=== PATIENT | female | born 1945 | race Caucasian/White ===

== ENCOUNTER 2022-05-22 09:55 | Outpatient (CLI) | payer OTHER, SELFPAY | END 2022-05-22 09:56 | disposition home or self-care (01) | LOC: AMB 05-30 06:45 | PROVIDERS: Visit Provider Internal Medicine | DX: R10.9 Unspecified abdominal pain (principal); R50.9 Fever, unspecified; R00.0 Tachycardia, unspecified | CPT/HCPCS: A0425; A0427 ==

== ENCOUNTER 2022-05-22 10:26 | Inpatient (IN) | payer OTHER, SELFPAY ==
[2022-05-22] VITALS (22 sets, daily range): BP systolic 127–199; BP diastolic 46–173; PULSE 91–122; RESP 14–36; TEMP 36.2–37.4; O2SAT 88–97; BMI 24.7; BMI 23.4
--- NOTE | 2022-05-22 11:27 | ED.GENADULT ---
HPI - General Adult General Time Seen by Provider: 11:26 Date Seen: 05/22/22 Chief complaint: Abdominal Pain Stated complaint: Abdominal pain Time Seen by Provider: 05/22/22 10:58 Source: patient, RN notes reviewed and old records reviewed History of Present Illness HPI narrative: 76-year-old female presents from [facility] dementia unit with 1 day of abdominal pain and fever. Patient is unable to give any history. She cannot tell me where she is or why she is here. When asked specifically about abdominal pain she indicates that she has abdominal pain and points to her umbilicus. She has a history of a cholecystectomy and hysterectomy. Known to have diverticulosis as well. She has significant peripheral vascular disease, aortic aneurysm. Related Data Allergies Allergy/AdvReac Type Severity Reaction Status Date / Time No Known Drug Allergies Allergy Verified 05/22/22 10:40 Review of Systems Narrative: unable to obtain due to dementia [facility] Medical History Anxiety COPD (chronic obstructive pulmonary disease) Dementia Depression Diverticulosis Epilepsy Hyperlipidemia Hypertension Insomnia Lumbar spinal stenosis Obesity Osteoporosis Peripheral vascular disease Pneumonia due to COVID-19 virus Vitamin D deficiency Surgical History H/O: hysterectomy History of cholecystectomy History of colonoscopy Hx of breast biopsy Family History (Updated 05/22/22 @ 11:34 by Ruel Sales MD) Other Coronary artery disease Cystic fibrosis Diabetes Social History (Updated 05/22/22 @ 11:35 by Ruel Sales MD) Narrative: She is a resident of dementia unit at [facility]. Her code status is DNR. Formerly a smoker and quit in 2007 after 80 pack years of smoking. She does not drink alcohol. Her daughter Michelle is her sound effects person. Smoking Status: Unknown if ever smoked Do you use any of these nicotine containing products: None Second hand tobacco smoke exposure: No How often do you have a drink containing alcohol: never AUDIT-C Alcohol total score: 0 Non-prescribed substance use: denies use Exam Narrative: Exam Narrative: She is alert and appears in no distress. She minimally answers questions. She is unable to tell me where she is or why she is here. She does know her name. Eyes are normal. Pupils are equal round reactive to light. Oropharynx with very dry mucous membranes. No facial weakness. Neck is supple without mass or adenopathy. Respirations with marked diminished breath sounds in all lung [place]. Cardiovascular: S1, S2, 1/6 systolic ejection murmur. No gallop or rub. Regular rate and rhythm. Abdomen: Bowel sounds active. Abdomen is soft With mild right-sided tenderness but no focal mass. Some voluntary guarding. External genitalia normal. Extremities with intact pulses. No edema. Const: Vital Signs, click to edit/add: Vital Signs - 24 hr 05/22/22 10:40 05/22/22 12:28 05/22/22 14:02 Temperature 99.4 F Pulse Rate [Apical ] 96 107 H 101 H Respiratory Rate 18 24 24 Blood Pressure [Ri ght Forearm] 144/81 H 141/92 H Blood Pressure [Ri ght Upper Arm] 165/84 H Pulse Oximetry 97 90 94 05/22/22 14:30 05/22/22 15:00 05/22/22 15:30 Temperature 98.4 F Pulse Rate [Apical ] 101 H 105 H 105 H Respiratory Rate 29 H 20 34 H Blood Pressure [Ri ght Forearm] Blood Pressure [Ri ght Upper Arm] 163/83 H 148/91 H 165/104 H Pulse Oximetry 93 91 92 05/22/22 16:00 05/22/22 16:30 05/22/22 17:00 Temperature Pulse Rate [Apical ] 120 H 120 H 122 H Respiratory Rate 14 Blood Pressure [Ri ght Forearm] 175/148 H 177/64 H 176/124 H Blood Pressure [Ri ght Upper Arm] Pulse Oximetry 92 92 92 05/22/22 17:30 05/22/22 18:00 Temperature 97.2 F L Pulse Rate [Apical ] 116 H 114 H Respiratory Rate 33 H 36 H Blood Pressure [Ri ght Forearm] 199/173 H 172/95 H Blood Pressure [Ri ght Upper Arm] Pulse Oximetry 93 94 Documenting provider has reviewed patient's vital signs: yes Course Course Hospital Course: patient continued to report abdominal pain. Received morphine with some relief. Vitals remained stable. She received IV fluids and after diagnosis of intra-abdominal abscess, Pipracil and tazobactam. Consultations Consultation #1: I spoke with the radiologist and with Dr. Ken about the finding of the intra-abdominal abscess. Recommendation now is to transfer for interventional radiology. [facility] has no available beds. Pending availability from [facility] at this time. Vital Signs Vital signs: Initial Vital Signs Temperature 99.4 F 05/22/22 10:40 Temperature Source Temporal Artery Scan 05/22/22 10:40 Pulse Rate 96 05/22/22 10:40 Pulse Rhythm 05/22/22 10:40 Respiratory Rate 18 05/22/22 10:40 Blood Pressure 144/81 H 05/22/22 10:40 Blood Pressure Mean 102 05/22/22 10:40 Blood Pressure Position Supine 05/22/22 10:40 Pulse Oximetry 97 05/22/22 10:40 Oxygen Delivery Method 05/22/22 10:40 Vital Signs Temperature 99.4 F 05/22/22 10:40 Pulse Rate 96 05/22/22 10:40 Respiratory Rate 18 05/22/22 10:40 Blood Pressure 144/81 H 05/22/22 10:40 Pulse Oximetry 97 05/22/22 10:40 Temperature 97.2 F L 05/22/22 18:00 Pulse Rate 114 H 05/22/22 18:00 Respiratory Rate 36 H 05/22/22 18:00 Blood Pressure 172/95 H 05/22/22 18:00 Pulse Oximetry 94 05/22/22 18:00 Medical Decision Making Lab Data Labs: Lab Results 05/22/22 05/22/22 05/22/22 Range/Units 11:23 11:23 11:23 WBC 19.21 H (4.50-11.00) K/uL RBC 4.99 (4.00-5.20) m/uL Hgb 14.4 (12.0-16.0) gm/dL Hct 44.0 (33.0-51.0) % MCV 88 (80-100) fL MCH 29 (26-34) pg MCHC 33 (32-36) gm/dL RDW Coeff of Héctor 13.5 (11.5-15.5) % Plt Count 181 (140-440) K/uL Neut % (Auto) 90.6 H (42.0-72.0) % Lymph % (Auto) 2.8 L (20-44) % [place] % (Auto) 6.1 (0.0-11.0) % Eos % (Auto) 0.0 (0.0-7.0) % Baso % (Auto) 0.4 (0.0-3.0) % Neut # (Auto) 17.40 H (1.7-7.0) K/uL Lymph # (Auto) 0.50 L (0.90-2.90) K/uL [place] # (Auto) 1.20 H (0.00-0.90) K/UL Eos # (Auto) 0.00 (0.00-0.50) K/uL Baso # (Auto) 0.10 (0.00-0.30) K/uL Abs Immat Gran (auto) 0.02 (0.00-0.30) K/uL D-Dimer Quant (PE/DVT) 2.45 H (0.00-0.50) ug/ml VBG pH (7.32-7.43) VBG pCO2 (40-50) mmHG VBG pO2 (25-47) mmHG VBG HCO3 (21-28) mmol/L Sodium 134 L (135-149) mmol/L Potassium 3.8 (3.6-5.1) mmol/L Chloride 103 (96-114) mmol/L Carbon Dioxide 27 (20-32) mmol/L BUN 26 (7-30) mg/dL Creatinine 0.8 (0.5-1.5) mg/dL Estimated Creat Clear 37.85 Glucose 162 H (60-115) mg/dL Lactate (0.5-1.9) mmol/L Calcium 9.0 (8.4-10.6) mg/dL Total Bilirubin 1.1 (0.1-1.5) mg/dL Direct Bilirubin 0.5 (0.0-0.5) mg/dL AST 361 H (12-35) U/L ALT 325 H (4-35) U/L Alkaline Phosphatase 157 H (40-150) U/L Troponin I 0.08 H* (0.01-0.04) ng/mL C-Reactive Protein 22.7 H (0.5-1.0) mg/dL Total Protein 6.8 (6.0-8.3) g/dL Albumin 4.1 (3.3-5.0) g/dL Lipase 37 (23-300) U/L Urine Color (Yellow) Urine Appearance (Clear) Urine pH (5.0-8.5) Ur Specific [place] (1.000-1.030) Urine Protein (Negative) Urine Glucose (UA) (Negative) Urine Ketones (Negative) Urine Blood (Negative) Urine Nitrite (Negative) Urine Bilirubin (Negative) Urine Urobilinogen (0.2-1.0) Ur Leukocyte Esterase (Negative) Urine RBC (0-2) Urine WBC (0-5) Ur Squamous Epith Cells (None-Few) Amorphous Sediment (None) Urine Bacteria (None) Urine Mucus (None) SARS-CoV-2 (PCR) (Negative) Influenza Type A (PCR) (Negative) Influenza Type B (PCR) (Negative) 05/22/22 05/22/22 05/22/22 Range/Units 11:23 11:23 12:00 WBC (4.50-11.00) K/uL RBC (4.00-5.20) m/uL Hgb (12.0-16.0) gm/dL Hct (33.0-51.0) % MCV (80-100) fL MCH (26-34) pg MCHC (32-36) gm/dL RDW Coeff of Héctor (11.5-15.5) % Plt Count (140-440) K/uL Neut % (Auto) (42.0-72.0) % Lymph % (Auto) (20-44) % Kend[place] % (Auto) (0.0-11.0) % Eos % (Auto) (0.0-7.0) % Baso % (Auto) (0.0-3.0) % Neut # (Auto) (1.7-7.0) K/uL Lymph # (Auto) (0.90-2.90) K/uL [place] # (Auto) (0.00-0.90) K/UL Eos # (Auto) (0.00-0.50) K/uL Baso # (Auto) (0.00-0.30) K/uL Abs Immat Gran (auto) (0.00-0.30) K/uL D-Dimer Quant (PE/DVT) (0.00-0.50) ug/ml VBG pH 7.46 H (7.32-7.43) VBG pCO2 37 L (40-50) mmHG VBG pO2 33.1 (25-47) mmHG VBG HCO3 26 (21-28) mmol/L Sodium (135-149) mmol/L Potassium (3.6-5.1) mmol/L Chloride (96-114) mmol/L Carbon Dioxide (20-32) mmol/L BUN (7-30) mg/dL Creatinine (0.5-1.5) mg/dL Estimated Creat Clear Glucose (60-115) mg/dL Lactate 0.9 (0.5-1.9) mmol/L Calcium (8.4-10.6) mg/dL Total Bilirubin (0.1-1.5) mg/dL Direct Bilirubin (0.0-0.5) mg/dL AST (12-35) U/L ALT (4-35) U/L Alkaline Phosphatase (40-150) U/L Troponin I (0.01-0.04) ng/mL C-Reactive Protein (0.5-1.0) mg/dL Total Protein (6.0-8.3) g/dL Albumin (3.3-5.0) g/dL Lipase (23-300) U/L Urine Color (Yellow) Urine Appearance (Clear) Urine pH (5.0-8.5) Ur Specific [place] (1.000-1.030) Urine Protein (Negative) Urine Glucose (UA) (Negative) Urine Ketones (Negative) Urine Blood (Negative) Urine Nitrite (Negative) Urine Bilirubin (Negative) Urine Urobilinogen (0.2-1.0) Ur Leukocyte Esterase (Negative) Urine RBC (0-2) Urine WBC (0-5) Ur Squamous Epith Cells (None-Few) Amorphous Sediment (None) Urine Bacteria (None) Urine Mucus (None) SARS-CoV-2 (PCR) Negative SARS-CoV-2 (Negative) Influenza Type A (PCR) NEGATIVE (Negative) Influenza Type B (PCR) NEGATIVE (Negative) 05/22/22 05/22/22 05/22/22 Range/Units 12:32 13:37 16:30 WBC (4.50-11.00) K/uL RBC (4.00-5.20) m/uL Hgb (12.0-16.0) gm/dL Hct (33.0-51.0) % MCV (80-100) fL MCH (26-34) pg MCHC (32-36) gm/dL RDW Coeff of Héctor (11.5-15.5) % Plt Count (140-440) K/uL Neut % (Auto) (42.0-72.0) % Lymph % (Auto) (20-44) % Kend[place] % (Auto) (0.0-11.0) % Eos % (Auto) (0.0-7.0) % Baso % (Auto) (0.0-3.0) % Neut # (Auto) (1.7-7.0) K/uL Lymph # (Auto) (0.90-2.90) K/uL [place] # (Auto) (0.00-0.90) K/UL Eos # (Auto) (0.00-0.50) K/uL Baso # (Auto) (0.00-0.30) K/uL Abs Immat Gran (auto) (0.00-0.30) K/uL D-Dimer Quant (PE/DVT) (0.00-0.50) ug/ml VBG pH (7.32-7.43) VBG pCO2 (40-50) mmHG VBG pO2 (25-47) mmHG VBG HCO3 (21-28) mmol/L Sodium (135-149) mmol/L Potassium (3.6-5.1) mmol/L Chloride (96-114) mmol/L Carbon Dioxide (20-32) mmol/L BUN (7-30) mg/dL Creatinine (0.5-1.5) mg/dL Estimated Creat Clear Glucose (60-115) mg/dL Lactate 1.2 1.5 (0.5-1.9) mmol/L Calcium (8.4-10.6) mg/dL Total Bilirubin (0.1-1.5) mg/dL Direct Bilirubin (0.0-0.5) mg/dL AST (12-35) U/L ALT (4-35) U/L Alkaline Phosphatase (40-150) U/L Troponin I (0.01-0.04) ng/mL C-Reactive Protein (0.5-1.0) mg/dL Total Protein (6.0-8.3) g/dL Albumin (3.3-5.0) g/dL Lipase (23-300) U/L Urine Color [place] A (Yellow) Urine Appearance Cloudy A (Clear) Urine pH 5.5 (5.0-8.5) Ur Specific [place] >= 1.030 (1.000-1.030) Urine Protein 2+ A (Negative) Urine Glucose (UA) Negative (Negative) Urine Ketones Negative (Negative) Urine Blood Trace-intact A (Negative) Urine Nitrite Negative (Negative) Urine Bilirubin 1+ A (Negative) Urine Urobilinogen 0.2 (0.2-1.0) Ur Leukocyte Esterase Negative (Negative) Urine RBC 2-5 A (0-2) Urine WBC 0-2 (0-5) Ur Squamous Epith Cells Few (None-Few) Amorphous Sediment Few A (None) Urine Bacteria Moderate A (None) Urine Mucus Few A (None) SARS-CoV-2 (PCR) (Negative) Influenza Type A (PCR) (Negative) Influenza Type B (PCR) (Negative) 05/22/22 Range/Units 16:33 WBC (4.50-11.00) K/uL RBC (4.00-5.20) m/uL Hgb (12.0-16.0) gm/dL Hct (33.0-51.0) % MCV (80-100) fL MCH (26-34) pg MCHC (32-36) gm/dL RDW Coeff of Héctor (11.5-15.5) % Plt Count (140-440) K/uL Neut % (Auto) (42.0-72.0) % Lymph % (Auto) (20-44) % [place] % (Auto) (0.0-11.0) % Eos % (Auto) (0.0-7.0) % Baso % (Auto) (0.0-3.0) % Neut # (Auto) (1.7-7.0) K/uL Lymph # (Auto) (0.90-2.90) K/uL [place] # (Auto) (0.00-0.90) K/UL Eos # (Auto) (0.00-0.50) K/uL Baso # (Auto) (0.00-0.30) K/uL Abs Immat Gran (auto) (0.00-0.30) K/uL D-Dimer Quant (PE/DVT) (0.00-0.50) ug/ml VBG pH (7.32-7.43) VBG pCO2 (40-50) mmHG VBG pO2 (25-47) mmHG VBG HCO3 (21-28) mmol/L Sodium (135-149) mmol/L Potassium (3.6-5.1) mmol/L Chloride (96-114) mmol/L Carbon Dioxide (20-32) mmol/L BUN (7-30) mg/dL Creatinine (0.5-1.5) mg/dL Estimated Creat Clear Glucose (60-115) mg/dL Lactate (0.5-1.9) mmol/L Calcium (8.4-10.6) mg/dL Total Bilirubin (0.1-1.5) mg/dL Direct Bilirubin (0.0-0.5) mg/dL AST (12-35) U/L ALT (4-35) U/L Alkaline Phosphatase (40-150) U/L Troponin I 0.08 H* (0.01-0.04) ng/mL C-Reactive Protein (0.5-1.0) mg/dL Total Protein (6.0-8.3) g/dL Albumin (3.3-5.0) g/dL Lipase (23-300) U/L Urine Color (Yellow) Urine Appearance (Clear) Urine pH (5.0-8.5) Ur Specific [place] (1.000-1.030) Urine Protein (Negative) Urine Glucose (UA) (Negative) Urine Ketones (Negative) Urine Blood (Negative) Urine Nitrite (Negative) Urine Bilirubin (Negative) Urine Urobilinogen (0.2-1.0) Ur Leukocyte Esterase (Negative) Urine RBC (0-2) Urine WBC (0-5) Ur Squamous Epith Cells (None-Few) Amorphous Sediment (None) Urine Bacteria (None) Urine Mucus (None) SARS-CoV-2 (PCR) (Negative) Influenza Type A (PCR) (Negative) Influenza Type B (PCR) (Negative) Discharge Plan Discharge Clinical Impression: Intra-abdominal abscess Patient Disposition: Admitted As Inpatient Condition: Critical
[2022-05-22 11:36] LABS: Lactate* 0.9 mmol/L (0.5-1.9)
[2022-05-22 11:39] LABS: Basophils Percent Auto 0.4 % (0.0-3.0); Hemoglobin* 14.4 gm/dL (12.0-16.0); Immature Granulocytes Abs Auto 0.02 K/uL (0.00-0.30); Lymphocytes Percent Auto 2.8 % (20-44); Mean Corpuscular HGB Conc 33 gm/dL (32-36); Mean Corpuscular Hemoglobin 29 pg (26-34); Mean Corpuscular Volume 88 fL (80-100); Monocytes Percent Auto 6.1 % (0.0-11.0); Neutrophils Percent Auto 90.6 % (42.0-72.0); Platelet Count* 181 K/uL (140-440); RDW Coefficient of Variation % 13.5 % (11.5-15.5); Red Blood Count 4.99 m/uL (4.00-5.20); White Blood Count* 19.21 K/uL (4.50-11.00)
[2022-05-22 11:42] LABS: HCO3 VBG 26 mmol/L (21-28); PCO2 VBG 37 mmHG (40-50); PO2 VBG 33.1 mmHG (25-47); pH VBG 7.46 (7.32-7.43)
[2022-05-22 11:45] LABS: Slide Review Reflex No
[2022-05-22 11:59] LABS: Albumin* 4.1 g/dL (3.3-5.0); Chloride* 103 mmol/L (96-114); Potassium* 3.8 mmol/L (3.6-5.1); Sodium* 134 mmol/L (135-149)
[2022-05-22 12:01] LABS: Creatinine* 0.8 mg/dL (0.5-1.5); Est. Creatinine Clearance* 37.85; Estimated Glomerular Filt Rate 76.31
[2022-05-22 12:02] LABS: Alkaline Phosphatase* 157 U/L (40-150); Aspartate Amino Transferase* 361 U/L (12-35); Bilirubin Direct* 0.5 mg/dL (0.0-0.5); Bilirubin Total* 1.1 mg/dL (0.1-1.5); Blood Urea Nitrogen* 26 mg/dL (7-30); Carbon Dioxide* 27 mmol/L (20-32); Total Protein* 6.8 g/dL (6.0-8.3)
[2022-05-22 12:03] LABS: Alanine Aminotransferase* 325 U/L (4-35); Glucose* 162 mg/dL (60-115); Lipase* 37 U/L (23-300)
[2022-05-22 12:14] LABS: Troponin I* 0.08 ng/mL (0.01-0.04)
[2022-05-22 12:16] LABS: C Reactive Protein* 22.7 mg/dL (0.5-1.0)
[2022-05-22 12:26] LABS: D Dimer Quantitative* 2.45 ug/ml (0.00-0.50)
--- NOTE | 2022-05-22 12:32 | ED.NURSE ---
dr pascual was informed of trop of 0.08.
[2022-05-22 12:42] LABS: Appearance Urine Cloudy (Clear); Bilirubin Urine 1+ (Negative); Blood Urine Trace-intact (Negative); Color Urine Orange (Yellow); Glucose Urine Negative (Negative); Ketones Urine Negative (Negative); Leukocyte Esterase Urine Negative (Negative); Nitrite Urine Negative (Negative); Protein Urine 2+ (Negative); Specific Gravity Urine >= 1.030 (1.000-1.030); Urobilinogen Urine 0.2 (0.2-1.0); pH Urine 5.5 (5.0-8.5)
--- NOTE | 2022-05-22 12:42 | CRLHL7_ITS ---
For Patients: As a result of the Century Cures Act, medical imaging exams and procedure reports are released immediately into your electronic medical record. You may view this report before your referring provider. If you have questions, please contact your health care provider. INDICATION: Abdominal pain. Hypoxia. COMPARISON: A chest CT dated December 15, 2020 and an abdomen and pelvis CT dated January 06, 2021. TECHNIQUE: CT examination of the chest, abdomen and pelvis was performed following the uneventful intravenous administration of 95 cc of Isovue 370. Thin section axial images were obtained from the thoracic inlet through the pubic symphysis. Oral contrast was not administered. Sagittal and coronal reformatted imaging was performed. The chest portion of the study was performed as a pulmonary angiogram. Please note that all CT scans at this facility use dose modulation, iterative reconstruction, and/or weight-based dosing when appropriate to reduce radiation dose to as low as reasonably achievable. FINDINGS: CHEST: Heart size normal. No mediastinal hilar adenopathy or mass. Atherosclerotic vascular calcifications. No significant pericardial fluid. Based on review of the prior CT, the lungs present with a background emphysema and interstitial fibrosis. There also a few nodules which were present previously and are probably benign. There is a new nodule laterally and low within the right upper lobe in a branching form which is probably inflammatory or related to mucoid impaction. This measures 11 millimeters. There is bibasilar atelectasis and there is mild interstitial edema. A follow-up CT in 6 months is recommended primarily to follow-up the new 11 millimeter nodule no significant pleural effusion. There is no indication of pulmonary embolus on this exam ABDOMEN AND PELVIS: LIVER/BILIARY SYSTEM:Hepatic steatosis. No focal mass. Gallbladder surgically absent. Moderate intra and extrahepatic biliary ductal dilatation. This is similar to the prior study and probably related to prior cholecystectomy. Correlate with LFTs. I see no distal choledocholithiasis or periampullary mass. ADRENALS: There is a 1 centimeter right adrenal mass. This is indeterminate but unchanged since 2020 and likely benign. The left adrenal gland is normal. KIDNEYS, URETERS and BLADDER:The kidneys appear normal. No hydronephrosis or hydroureter. A Pfeiffer catheter is within the bladder SPLEEN:Normal appearance. PANCREAS: Appears normal. RETROPERITONEUM and MESENTERY: There is no mass, adenopathy or aortic aneurysm. There is an abdominal aortic aneurysm. This measures about 3.5 centimeters which is similar to January 06, 2021. GASTROINTESTINAL SYSTEM: There is a collection identified. This parallels the ascending colon and is located posterior and to the right of the colon. This measures about 3.8 x 2.2 x 7.5 centimeters measured from axial image 62 and sagittal image 76. This likely represents an abscess. The source is likely the appendix. Diverticulitis or colon cancer is possible. The remainder of the GI system appears normal. PELVIS: No mass, adenopathy or free fluid. OSSEOUS STRUCTURES and ABDOMINAL WALL: Degenerative changes without fracture or destructive process.No significant abdominal wall defect. OTHER: No free fluid or free air. I discussed this case with Dr. Ruel Sales at 2 o`clock on May 22, 2022 IMPRESSION: 1. CHEST: There is no indication of pulmonary embolus on this exam. There are findings suggesting mild interstitial edema. There is also a background of emphysema and fibrosis. A few nodules are stable. One nodule is new and a six-month follow-up CT is recommended regarding this finding. ascending colon measuring 3.8 x 2.2 x 7.5 centimeters likely representing an abscess. The sources probably appendiceal though it could be due to colonic diverticulitis or perforated malignancy. 3. Other incidental nonacute appearing findings as above. Please note that all CT scans at this facility use dose modulation, iterative reconstruction, and/or weight-based dosing when appropriate to reduce radiation dose to as low as reasonably achievable. Dictated by Chadwick Estrella MD @ 05/22/2022 2:01:45 PM (Electronically Signed)
[2022-05-22 12:47] LABS: PCR FLU A NEGATIVE (Negative); PCR FLU B NEGATIVE (Negative); SARS PCR* Negative SARS-CoV-2 (Negative)
[2022-05-22 13:05] LABS: Bacteria Urine Moderate; Squamous Epithelial Cell Urine Few (None-Few); WBC Urine 0-2 (0-5)
[2022-05-22 13:06] LABS: Amorphous Sediment Urine Few; Mucus Urine Few
[2022-05-22] MEDS: 0.9 % SODIUM CHLORIDE 500 ML 500 ML IV (13:23)
[2022-05-22] MEDS: MORPHINE 2 MG/ML inj IVP ×3 (13:26→16:13)
[2022-05-22 13:54] LABS: Lactate* 1.2 mmol/L (0.5-1.9)
[2022-05-22] MEDS: PIPERACILLIN/TAZOBACTAM 3.375 GM in 0.9 % SODIUM CHLORIDE Mini-bag 100 ML IVPB ×2 (14:20→20:50)
[2022-05-22] MEDS: LACTATED RINGERS 1000 ML 1,000 ML IV (15:27)
[2022-05-22 16:35] LABS: Lactate* 1.5 mmol/L (0.5-1.9)
[2022-05-22] MEDS: FUROSEMIDE 10 MG/ML inj 20 MG IV (16:38)
[2022-05-22 17:07] LABS: Troponin I* 0.08 ng/mL (0.01-0.04)
--- NOTE | 2022-05-22 17:53 | ED.NURSE ---
Received call from Deidre at the [facility]. They are still waiting for the general surgeon to review pt's case. [facility] docs want gen surg to review. They are still waiting for surgeon to get out of cases
--- NOTE | 2022-05-22 20:05 | P.IMHP_ITS ---
Hospitalist- H&P: HPI History of Present Illness Date Seen: 05/22/22 Chief complaint: Abdominal pain Narrative: Khadijah Quinones is a 76 year old female [facility] Medical History Anxiety COPD (chronic obstructive pulmonary disease) Dementia Depression Diverticulosis Epilepsy Hyperlipidemia Hypertension Insomnia Lumbar spinal stenosis Obesity Osteoporosis Peripheral vascular disease Pneumonia due to COVID-19 virus Vitamin D deficiency Surgical History H/O: hysterectomy History of cholecystectomy History of colonoscopy Hx of breast biopsy Family History (Updated 05/22/22 @ 11:34 by Ruel Sales MD) Other Coronary artery disease Cystic fibrosis Diabetes Social History (Updated 05/22/22 @ 11:35 by Ruel Sales MD) Narrative: She is a resident of dementia unit at [facility]. Her code status is DNR. Formerly a smoker and quit in 2007 after 80 pack years of smoking. She does not drink alcohol. Her daughter Michelle is her mechanical engineering draftsperson. Smoking Status: Unknown if ever smoked Do you use any of these nicotine containing products: None Second hand tobacco smoke exposure: No How often do you have a drink containing alcohol: never AUDIT-C Alcohol total score: 0 Non-prescribed substance use: denies use Meds Home Medications and Allergies Allergies Allergy/AdvReac Type Severity Reaction Status Date / Time No Known Drug Allergies Allergy Verified 05/22/22 10:40 Exam Const: Vital Signs, click to edit/add: Vital Signs - 24 hr 05/22/22 10:40 05/22/22 12:28 05/22/22 14:02 Temperature 99.4 F Pulse Rate [Apical ] 96 107 H 101 H Respiratory Rate 18 24 24 Blood Pressure [Ri ght Forearm] 144/81 H 141/92 H Blood Pressure [Ri ght Upper Arm] 165/84 H Pulse Oximetry 97 90 94 05/22/22 14:30 05/22/22 15:00 05/22/22 15:30 Temperature 98.4 F Pulse Rate [Apical ] 101 H 105 H 105 H Respiratory Rate 29 H 20 34 H Blood Pressure [Ri ght Forearm] Blood Pressure [Ri ght Upper Arm] 163/83 H 148/91 H 165/104 H Pulse Oximetry 93 91 92 05/22/22 16:00 05/22/22 16:30 05/22/22 17:00 Temperature Pulse Rate [Apical ] 120 H 120 H 122 H Respiratory Rate 14 Blood Pressure [Ri ght Forearm] 175/148 H 177/64 H 176/124 H Blood Pressure [Ri ght Upper Arm] Pulse Oximetry 92 92 92 05/22/22 17:30 05/22/22 18:00 Temperature 97.2 F L Pulse Rate [Apical ] 116 H 114 H Respiratory Rate 33 H 36 H Blood Pressure [Ri ght Forearm] 199/173 H 172/95 H Blood Pressure [Ri ght Upper Arm] Pulse Oximetry 93 94 Hospitalist - H&P: Result Labs Labs: Short CBC 05/22/22 Range/Units 11:23 WBC 19.21 H (4.50-11.00) K/uL Hgb 14.4 (12.0-16.0) gm/dL Hct 44.0 (33.0-51.0) % Plt Count 181 (140-440) K/uL BMP 05/22/22 11:23 Sodium 134 L Potassium 3.8 Chloride 103 Carbon Dioxide 27 BUN 26 Creatinine 0.8 Glucose 162 H Calcium 9.0 Cardiac Enzymes 05/22/22 05/22/22 Range/Units 11:23 16:33 Troponin I 0.08 H* 0.08 H* (0.01-0.04) ng/mL Liver Function 05/22/22 Range/Units 11:23 Total Bilirubin 1.1 (0.1-1.5) mg/dL Direct Bilirubin 0.5 (0.0-0.5) mg/dL AST 361 H (12-35) U/L ALT 325 H (4-35) U/L Alkaline Phosphatase 157 H (40-150) U/L Albumin 4.1 (3.3-5.0) g/dL Urine 05/22/22 Range/Units 12:32 Urine Color [place] A (Yellow) Urine Appearance Cloudy A (Clear) Urine pH 5.5 (5.0-8.5) Ur Specific [place] >= 1.030 (1.000-1.030) Urine Protein 2+ A (Negative) Urine Glucose (UA) Negative (Negative) Imaging CT scan - abdomen: Radiologist's impression: 1. CHEST: There is no indication of pulmonary embolus on this exam. There are findings suggesting mild interstitial edema. There is also a background of emphysema and fibrosis. A few nodules are stable. One nodule is new and a six-month follow-up CT is recommended regarding this finding. ascending colon measuring 3.8 x 2.2 x 7.5 centimeters likely representing an abscess. The sources probably appendiceal though it could be due to colonic diverticulitis or perforated malignancy. 3. Other incidental nonacute appearing findings as above.
--- NOTE | 2022-05-22 20:05 | ED.NURSE ---
admin request sent, [facility] called
--- NOTE | 2022-05-22 20:18 | PM.IMHP1 ---
Hospitalist- H&P: HPI History of Present Illness Time Seen by Provider: 09:30 Date Seen: 05/22/22 Chief complaint: Abdominal pain Narrative: Khadijah Quinones is a 76 year old female presenting with abdominal pain. Hx limited secondary to dementia. She presented to ED from [place] for worsening abdominal pain. In the ED CT CAP showed There is no indication of pulmonary embolus on this exam. There are findings suggesting mild interstitial edema. There is also a background of emphysema and fibrosis. A few nodules are stable. One nodule is new yady six-month follow-up CT is recommended regarding this finding. ascending colon measuring 3.8 x 2.2 x 7.5 centimeters likely representing an abscess. The sources probably appendiceal though it could be due to colonic diverticulitis or perforated malignancy. In the ED she was started on zosyn. Her case was discussed with General Surgery who recommended Review of Systems Status of ROS: Reports: unobtainable due to medical condition PFSH PFSH Medical History Anxiety COPD (chronic obstructive pulmonary disease) Dementia Depression Diverticulosis Epilepsy Hyperlipidemia Hypertension Insomnia Lumbar spinal stenosis Obesity Osteoporosis Peripheral vascular disease Pneumonia due to COVID-19 virus Vitamin D deficiency Surgical History H/O: hysterectomy History of cholecystectomy History of colonoscopy Hx of breast biopsy Family History (Updated 05/22/22 @ 11:34 by Ruel Sales MD) Other Coronary artery disease Cystic fibrosis Diabetes Social History (Updated 05/22/22 @ 11:35 by Ruel Sales MD) Narrative: She is a resident of dementia unit at [facility]. Her code status is DNR. Formerly a smoker and quit in 2007 after 80 pack years of smoking. She does not drink alcohol. Her daughter Michelle is her contact lens molder. Smoking Status: Unknown if ever smoked Do you use any of these nicotine containing products: None Second hand tobacco smoke exposure: No How often do you have a drink containing alcohol: never AUDIT-C Alcohol total score: 0 Non-prescribed substance use: denies use Meds Home Medications and Allergies Allergies Allergy/AdvReac Type Severity Reaction Status Date / Time No Known Drug Allergies Allergy Verified 05/22/22 10:40 Exam Narrative: Exam Narrative: Gen: no acute distress HEENT: NCAT EOMI MMM CV: RRR normal s1 s2 Lungs: CTAB Abd: soft, nt, nd MSK: age appropriate muscle mass Skin: warm, dry no rash Neuro: Alert to self; appears at baseline state Const: Vital Signs, click to edit/add: Vital Signs - 24 hr 05/22/22 10:40 05/22/22 12:28 05/22/22 14:02 Temperature 99.4 F Pulse Rate [Apical ] 96 107 H 101 H Respiratory Rate 18 24 24 Blood Pressure [Ri ght Forearm] 144/81 H 141/92 H Blood Pressure [Ri ght Upper Arm] 165/84 H Pulse Oximetry 97 90 94 05/22/22 14:30 05/22/22 15:00 05/22/22 15:30 Temperature 98.4 F Pulse Rate [Apical ] 101 H 105 H 105 H Respiratory Rate 29 H 20 34 H Blood Pressure [Ri ght Forearm] Blood Pressure [Ri ght Upper Arm] 163/83 H 148/91 H 165/104 H Pulse Oximetry 93 91 92 05/22/22 16:00 05/22/22 16:30 05/22/22 17:00 Temperature Pulse Rate [Apical ] 120 H 120 H 122 H Respiratory Rate 14 Blood Pressure [Ri ght Forearm] 175/148 H 177/64 H 176/124 H Blood Pressure [Ri ght Upper Arm] Pulse Oximetry 92 92 92 05/22/22 17:30 05/22/22 18:00 Temperature 97.2 F L Pulse Rate [Apical ] 116 H 114 H Respiratory Rate 33 H 36 H Blood Pressure [Ri ght Forearm] 199/173 H 172/95 H Blood Pressure [Ri ght Upper Arm] Pulse Oximetry 93 94 Hospitalist - H&P: Result Labs Labs: Short CBC 05/22/22 Range/Units 11:23 WBC 19.21 H (4.50-11.00) K/uL Hgb 14.4 (12.0-16.0) gm/dL Hct 44.0 (33.0-51.0) % Plt Count 181 (140-440) K/uL BMP 05/22/22 11:23 Sodium 134 L Potassium 3.8 Chloride 103 Carbon Dioxide 27 BUN 26 Creatinine 0.8 Glucose 162 H Calcium 9.0 Cardiac Enzymes 05/22/22 05/22/22 Range/Units 11:23 16:33 Troponin I 0.08 H* 0.08 H* (0.01-0.04) ng/mL Liver Function 05/22/22 Range/Units 11:23 Total Bilirubin 1.1 (0.1-1.5) mg/dL Direct Bilirubin 0.5 (0.0-0.5) mg/dL AST 361 H (12-35) U/L ALT 325 H (4-35) U/L Alkaline Phosphatase 157 H (40-150) U/L Albumin 4.1 (3.3-5.0) g/dL Urine 05/22/22 Range/Units 12:32 Urine Color [place] A (Yellow) Urine Appearance Cloudy A (Clear) Urine pH 5.5 (5.0-8.5) Ur Specific [place] >= 1.030 (1.000-1.030) Urine Protein 2+ A (Negative) Urine Glucose (UA) Negative (Negative) Imaging CT scan - abdomen: Radiologist's impression: IMPRESSION: 1. CHEST: There is no indication of pulmonary embolus on this exam. There are findings suggesting mild interstitial edema. There is also a background of emphysema and fibrosis. A few nodules are stable. One nodule is new and a six-month follow-up CT is recommended regarding this finding. ascending colon measuring 3.8 x 2.2 x 7.5 centimeters likely representing an abscess. The sources probably appendiceal though it could be due to colonic diverticulitis or perforated malignancy. 3. Other incidental nonacute appearing findings as above. Assessment and Plan Assessment and plan (1) Intra-abdominal abscess: Status: Acute Plan This is a 76F with hx of dementia presenting for evaluation of abdominal pain. Hx limited secondary to dementia. In the ED CT CAP showed There is no indication of pulmonary embolus on this exam. There are findings suggesting mild interstitial edema. There is also a background of emphysema and fibrosis. A few nodules are stable. One nodule is new yady six-month follow-up CT is recommended regarding this finding. ascending colon measuring 3.8 x 2.2 x 7.5 centimeters likely representing an abscess. The sources probably appendiceal though it could be due to colonic diverticulitis or perforated malignancy. In the ED she was started on zosyn. Her case was discussed with General Surgery who recommended IR evaluation. Her case was discussed with [facility] who have conditionally accepted her once a bed opens up. 1. Intra-abdominal abscess 2. Hx of Dementia 3. Rule out UTI 4. Hx of COPD 5. Hx of HTN 6. Hx of HLD Plan -admit to inpatient -NPO -gentle MIVF -continue zosyn -pain control -Disposition [facility] who have conditionally accepted her once a bed opens up for IR drainage Code-DNR DVT ppx-SCD pharmacy med rec pending will need review
[2022-05-22] MEDS: PANTOPRAZOLE SODIUM 40 MG INJ IV (20:48)
[2022-05-22] MEDS: HYDROmorphone 0.5 mg/0.5 ml inj IVP ×2 (20:49→23:34)
--- NOTE | 2022-05-22 21:11 | ED.NURSE ---
pt to CCU via tech. Dilaudid given for pain control. Daughter aware of pt admin to CCU. RN called and informed of new information
[2022-05-22] MEDS: SODIUM CHLORIDE 0.9 % (FLUSH) 10 ML SYRINGE IVF (23:30)
[2022-05-22] MEDS: 5 % DEXTROSE/0.9% SOD CHLORIDE 1,000 ML 75 ML IV (23:34)
[2022-05-23] MEDS: PIPERACILLIN/TAZOBACTAM 3.375 GM in 0.9 % SODIUM CHLORIDE Mini-bag 100 ML IVPB ×2 (01:46→08:02)
[2022-05-23 03:00] VITALS: BP 146/60; PULSE 92; RESP 24; TEMP 36.9; O2SAT 93
[2022-05-23] MEDS: HYDROmorphone 0.5 mg/0.5 ml inj IVP ×4 (04:33→14:47)
--- NOTE | 2022-05-23 06:19 | PC.NURSE ---
[id number]: Patient cooperative with cares. Baseline dementia. Pfeiffer patent and draining small amounts of trudi colored urine. Daughter Mihcelle at bedside during noc. Independently T&R in bed. Able to verbalize pain but not able to rate pain. PRN Dilaudid administered x2 for relief. 2-3 Lt NC to maintain O2>92% depending on patient's positioning. NPO. Anticipating transfer to [facility].
[2022-05-23 06:43] LABS: Basophils Percent Auto 0.1 % (0.0-3.0); Hematocrit 40.7 % (33.0-51.0); Hemoglobin* 13.1 gm/dL (12.0-16.0); Immature Granulocytes Abs Auto 0.05 K/uL (0.00-0.30); Lymphocytes Percent Auto 2.8 % (20-44); Mean Corpuscular HGB Conc 32 gm/dL (32-36); Mean Corpuscular Hemoglobin 29 pg (26-34); Mean Corpuscular Volume 90 fL (80-100); Monocytes Percent Auto 4.9 % (0.0-11.0); Neutrophils Percent Auto 91.9 % (42.0-72.0); Platelet Count* 162 K/uL (140-440); RDW Coefficient of Variation % 13.7 % (11.5-15.5); Red Blood Count 4.55 m/uL (4.00-5.20); White Blood Count* 17.98 K/uL (4.50-11.00)
[2022-05-23 06:49] LABS: Slide Review Reflex No
[2022-05-23 06:54] LABS: Albumin* 3.2 g/dL (3.3-5.0)
[2022-05-23 06:55] LABS: Chloride* 106 mmol/L (96-114); Potassium* 3.2 mmol/L (3.6-5.1); Sodium* 137 mmol/L (135-149)
[2022-05-23 06:57] LABS: Bilirubin Direct* 0.7 mg/dL (0.0-0.5); Bilirubin Total* 1.2 mg/dL (0.1-1.5); Carbon Dioxide* 27 mmol/L (20-32); Creatinine* 1.1 mg/dL (0.5-1.5); Est. Creatinine Clearance* 37.57; Estimated Glomerular Filt Rate 52.08; Total Protein* 5.6 g/dL (6.0-8.3)
[2022-05-23 06:58] LABS: Alanine Aminotransferase* 318 U/L (4-35); Alkaline Phosphatase* 153 U/L (40-150); Aspartate Amino Transferase* 219 U/L (12-35); Blood Urea Nitrogen* 26 mg/dL (7-30); Calcium* 7.7 mg/dL (8.4-10.6); Glucose* 203 mg/dL (60-115)
[2022-05-23 07:00] VITALS: BP 116/57; PULSE 85; PULSE 91; RESP 18; TEMP 37.3; O2SAT 85; O2SAT 91
[2022-05-23 07:27] VITALS: PULSE 82
[2022-05-23] MEDS: PANTOPRAZOLE SODIUM 40 MG INJ IVP (07:58)
[2022-05-23] MEDS: ONDANSETRON 2 MG/ML inj 4 MG IVP (08:20)
[2022-05-23 10:39] LABS: Glucose, Point-of-Care* 186 mg/dl (60-115)
--- NOTE | 2022-05-23 10:49 | REH.OT ---
OT/PT: Orders received and per rounds, patient not appropriate for therapy intervention due to medical status and possible transfer if bed available. Will check status tomorrow.
[2022-05-23 11:00] VITALS: BP 113/61; PULSE 84; RESP 18; TEMP 36.9; O2SAT 95
--- NOTE | 2022-05-23 11:08 | URNOTE ---
Vital Signs Temp Pulse Pulse Pulse Resp BP BP 05/23/22 07:27 82 05/23/22 07:00 99.1 F 91 18 116/57 L 05/23/22 03:00 98.5 F 92 24 146/60 H 05/22/22 23:09 28 H 05/22/22 23:00 98.4 F 91 92 24 127/46 L 05/22/22 22:56 98.0 F 109 H 28 H 150/50 H 05/22/22 21:52 28 H 05/22/22 21:00 101 H 20 05/22/22 20:30 113 H 16 05/22/22 20:09 104 H 05/22/22 20:00 116 H 05/22/22 19:30 105 H 18 05/22/22 19:00 98 05/22/22 18:30 103 H 26 H 05/22/22 18:00 97.2 F L 114 H 36 H 172/95 H 05/22/22 17:30 116 H 33 H 199/173 H 05/22/22 17:00 122 H 176/124 H 05/22/22 16:30 120 H 177/64 H 05/22/22 16:00 120 H 14 175/148 H 05/22/22 15:30 105 H 34 H 05/22/22 15:00 98.4 F 105 H 20 05/22/22 14:30 101 H 29 H 05/22/22 14:02 101 H 24 05/22/22 12:28 107 H 24 141/92 H BP Pulse Ox 05/23/22 07:27 05/23/22 07:00 85 L 05/23/22 03:00 93 05/22/22 23:09 92 05/22/22 23:00 91 05/22/22 22:56 92 05/22/22 21:52 92 05/22/22 21:00 140/109 H 95 05/22/22 20:30 153/62 H 88 05/22/22 20:09 05/22/22 20:00 182/95 H 92 05/22/22 19:30 169/103 H 05/22/22 19:00 188/98 H 91 05/22/22 18:30 178/90 H 91 05/22/22 18:00 94 05/22/22 17:30 93 05/22/22 17:00 92 05/22/22 16:30 92 05/22/22 16:00 92 05/22/22 15:30 165/104 H 92 05/22/22 15:00 148/91 H 91 05/22/22 14:30 163/83 H 93 05/22/22 14:02 165/84 H 94 05/22/22 12:28 90 Intake and Output 05/22/22 05/23/22 05/23/22 23:59 07:59 15:59 Intake Total 1100 / 1700 500 / 735 235 / 735 Output Total 1275 / 1275 150 / 150 Balance -175 / 425 350 / 585 235 / 585 Intake: IV 1100 / 1700 500 / 735 235 / 735 5 % Dextrose/0.9% Sod Chloride 400 / 535 135 / 535 1,000 ml @ 75 mls/hr IV . [id number] [facility] Rx#:[id number] Lactated Ringers 1000 ml 1,000 1000 / 1000 ml @ 1000 mls/hr IV .Q1H ONE Rx #:[id number] Piperacillin/Tazobactam 3.375 100 / 200 100 / 200 100 / 200 gm In 0.9 % SODIUM CHLORIDE Mini-bag 100 ml @ 200 mls/hr IVPB Q6H [facility] Rx#:[id number] Oral 0 / 0 0 / 0 Output: Urine Amount (Catheter) 1275 / 1275 150 / 150 Urethral 1275 / 1275 150 / 150 Other: # Bowel Movements 0 0 Weight 61.961 kg 61.961 kg Patient Weight 05/23/22 23:59 Weight 61.961 kg
--- NOTE | 2022-05-23 11:23 | P.IMPN_ITS ---
Progress Note: A&P Assessment and plan (1) Intra-abdominal abscess: Problem details: CT Abd/Pelvis 05/22/22: 3.8 x 2.2 x 7.5 abscess posterior to cecum and ascending colon Status: Acute Assessment and Plan: Patient warrants level of service and care beyond what we are able to provide her with. We have attempted multiple tertiary care medical facilities in the [facility] and there is currently no bed availability. We are on the waiting cue for the patient to be transferred to the [facility], [place], [place]. Meanwhile she is receiving appropriate IV antibiotics. She is on IV fluids. Is NPO. Receiving analgesics and antiemetics. Should her condition become more unstable or critical will need to continued our efforts to mobilize a bed if at all possible somewhere in the state. Reviewed with patient and daughter again today who are agreeable to proceed as planned still. (2) Dementia: Problem details: Chronic, lives in assisted living center with support Status: Acute (3) Anxiety: Status: Acute (4) Depression: Status: Acute (5) Diverticulosis: Status: Acute (6) COPD (chronic obstructive pulmonary disease): Status: Acute Assessment and Plan: Continue supportive efforts. (7) Epilepsy: Status: Acute Assessment and Plan: Continue supportive efforts. (8) Hypertension: Status: Acute (9) Hyperlipidemia: Status: Acute (10) Lumbar spinal stenosis: Status: Acute (11) Peripheral vascular disease: Status: Acute (12) Osteoporosis: Status: Acute Time Spent With Patient Total time spent: 30 minutes Subjective Time Seen by Provider: 08:00 Date Seen: 05/23/22 Interval history: Hospital day 2. 88-year-old woman with known cognitive impairment, presumably dementia not otherwise specified, presented yesterday with fever, abdominal pain, and altered mental status. In assessing her a CT scan of the abdomen and pelvis was obtained which demonstrated an intra-abdominal abscess near the ascending colon and cecum, with a differential diagnosis including ruptured appendicitis with abscess, ruptured diverticulum with abscess, ruptured cancer with abscess. While in emergency department efforts were made to transfer the patient to tertiary medical care facility across the region and state. There were no bed availabilities. Discussion was held with [place], [place], and the on-call physician agreed that patient warranted admission but again the 2 had no beds. They did place her on a cue such that when the bed became available they would call us. We still have not heard back from them. We have called them and confirmed that she is on the cue. Patient indicates she is feeling a little better today when she rests still. St ill has abdominal discomfort with movement and with palpation. Her mentation is still not normalized according to the patient's daughter who is present with us. She is NPO. She is receiving IV fluids. Continues on IV antibiotics. Pain, nausea, vomiting, under better control. She denies chest heaviness, pressure, tightness, or pain. Denies syncope or near-syncope. Denies palpitations. Yony es cough. Denies dyspnea at rest, paroxysmal nocturnal dyspnea, or orthopnea. States bowel and bladder habits are satisfactory. specifically denies diarrhea, hematochezia, melena, hematemesis, hematuria, urinary frequency, dysuria, or urgency. Weaker than usual. Reportedly usually independent. Now requires assistance with transferring and movement. Exam Narrative: Exam Narrative: Appears ill. Appears tired. Awake, alert, oriented to self, knows she is in the hospital, re-orientable to time. Cooperative. Friendly. Mood and affect are congruent. Lungs fairly clear to auscultation save some mild decreased breath sounds in both bases. No wheezing, rhonchi, or rales. Heart tones with regular rhythm, normal S1-S2. Soft systolic murmur left upper sternal border. No gallop or rub. PMI not laterally displaced. Abdomen with active bowel sounds, soft, subjective discomfort to palpation in epigastrium and right side. No rebound or guarding. Extremities without edema. Palpable pulses upper and lower extremities. Capillary refill less than 3 seconds in fingers and toes. Skin is dry, intact, thin. No obvious focal motor neurologic deficits. Const: Vital Signs, click to edit/add: Vital Signs - 24 hr 05/22/22 12:28 05/22/22 14:02 05/22/22 14:30 Temperature Pulse Rate Pulse Rate [Apical ] 107 H 101 H 101 H Pulse Rate [Left R adial] Respiratory Rate 24 24 29 H Blood Pressure [Ri ght Arm] Blood Pressure [Ri ght Forearm] 141/92 H Blood Pressure [Ri ght Upper Arm] 165/84 H 163/83 H Pulse Oximetry 90 94 93 05/22/22 15:00 05/22/22 15:30 05/22/22 16:00 Temperature 98.4 F Pulse Rate Pulse Rate [Apical ] 105 H 105 H 120 H Pulse Rate [Left R adial] Respiratory Rate 20 34 H 14 Blood Pressure [Ri ght Arm] Blood Pressure [Ri ght Forearm] 175/148 H Blood Pressure [Ri ght Upper Arm] 148/91 H 165/104 H Pulse Oximetry 91 92 92 05/22/22 16:30 05/22/22 17:00 05/22/22 17:30 Temperature Pulse Rate Pulse Rate [Apical ] 120 H 122 H 116 H Pulse Rate [Left R adial] Respiratory Rate 33 H Blood Pressure [Ri ght Arm] Blood Pressure [Ri ght Forearm] 177/64 H 176/124 H 199/173 H Blood Pressure [Ri ght Upper Arm] Pulse Oximetry 92 92 93 05/22/22 18:00 05/22/22 18:30 05/22/22 19:00 Temperature 97.2 F L Pulse Rate Pulse Rate [Apical ] 114 H 103 H 98 Pulse Rate [Left R adial] Respiratory Rate 36 H 26 H Blood Pressure [Ri ght Arm] Blood Pressure [Ri ght Forearm] 172/95 H Blood Pressure [Ri ght Upper Arm] 178/90 H 188/98 H Pulse Oximetry 94 91 91 05/22/22 19:30 05/22/22 20:00 05/22/22 20:09 Temperature Pulse Rate 104 H Pulse Rate [Apical ] 105 H 116 H Pulse Rate [Left R adial] Respiratory Rate 18 Blood Pressure [Ri ght Arm] Blood Pressure [Ri ght Forearm] Blood Pressure [Ri ght Upper Arm] 169/103 H 182/95 H Pulse Oximetry 92 05/22/22 20:30 05/22/22 21:00 05/22/22 21:52 Temperature Pulse Rate Pulse Rate [Apical ] 113 H 101 H Pulse Rate [Left R adial] Respiratory Rate 16 20 28 H Blood Pressure [Ri ght Arm] Blood Pressure [Ri ght Forearm] Blood Pressure [Ri ght Upper Arm] 153/62 H 140/109 H Pulse Oximetry 88 95 92 05/22/22 22:56 05/22/22 23:00 05/22/22 23:09 Temperature 98.0 F 98.4 F Pulse Rate 91 Pulse Rate [Apical ] Pulse Rate [Left R adial] 109 H 92 Respiratory Rate 28 H 24 28 H Blood Pressure [Ri ght Arm] 150/50 H 127/46 L Blood Pressure [Ri ght Forearm] Blood Pressure [Ri ght Upper Arm] Pulse Oximetry 92 91 92 05/23/22 03:00 05/23/22 07:00 05/23/22 07:27 Temperature 98.5 F 99.1 F Pulse Rate 82 Pulse Rate [Apical ] Pulse Rate [Left R adial] 92 91 Respiratory Rate 24 18 Blood Pressure [Ri ght Arm] 146/60 H 116/57 L Blood Pressure [Ri ght Forearm] Blood Pressure [Ri ght Upper Arm] Pulse Oximetry 93 85 L Labs Labs: Laboratory Results - last 24 hr 05/22/22 05/22/22 05/22/22 11:23 11:23 11:23 WBC 19.21 H RBC 4.99 Hgb 14.4 Hct 44.0 MCV 88 MCH 29 MCHC 33 RDW Coeff of Héctor 13.5 Plt Count 181 Neut % (Auto) 90.6 H Lymph % (Auto) 2.8 L [place] % (Auto) 6.1 Eos % (Auto) 0.0 Baso % (Auto) 0.4 Neut # (Auto) 17.40 H Lymph # (Auto) 0.50 L [place] # (Auto) 1.20 H Eos # (Auto) 0.00 Baso # (Auto) 0.10 Abs Immat Gran (auto) 0.02 D-Dimer Quant (PE/DVT) 2.45 H VBG pH VBG pCO2 VBG pO2 VBG HCO3 Sodium 134 L Potassium 3.8 Chloride 103 Carbon Dioxide 27 BUN 26 Creatinine 0.8 Estimated Creat Clear 37.85 Glucose 162 H Lactate Calcium 9.0 Total Bilirubin 1.1 Direct Bilirubin 0.5 AST 361 H ALT 325 H Alkaline Phosphatase 157 H Troponin I 0.08 H* C-Reactive Protein 22.7 H Total Protein 6.8 Albumin 4.1 Lipase 37 Urine Color Urine Appearance Urine pH Ur Specific [place] Urine Protein Urine Glucose (UA) Urine Ketones Urine Blood Urine Nitrite Urine Bilirubin Urine Urobilinogen Ur Leukocyte Esterase Urine RBC Urine WBC Ur Squamous Epith Cells Amorphous Sediment Urine Bacteria Urine Mucus SARS-CoV-2 (PCR) Influenza Type A (PCR) Influenza Type B (PCR) SARS-CoV-2 Ag (Rapid) POC Glucose 05/22/22 05/22/22 05/22/22 11:23 11:23 12:00 WBC RBC Hgb Hct MCV MCH MCHC RDW Coeff of Héctor Plt Count Neut % (Auto) Lymph % (Auto) [place] % (Auto) Eos % (Auto) Baso % (Auto) Neut # (Auto) Lymph # (Auto) [place] # (Auto) Eos # (Auto) Baso # (Auto) Abs Immat Gran (auto) D-Dimer Quant (PE/DVT) VBG pH 7.46 H VBG pCO2 37 L VBG pO2 33.1 VBG HCO3 26 Sodium Potassium Chloride Carbon Dioxide BUN Creatinine Estimated Creat Clear Glucose Lactate 0.9 Calcium Total Bilirubin Direct Bilirubin AST ALT Alkaline Phosphatase Troponin I C-Reactive Protein Total Protein Albumin Lipase Urine Color Urine Appearance Urine pH Ur Specific [place] Urine Protein Urine Glucose (UA) Urine Ketones Urine Blood Urine Nitrite Urine Bilirubin Urine Urobilinogen Ur Leukocyte Esterase Urine RBC Urine WBC Ur Squamous Epith Cells Amorphous Sediment Urine Bacteria Urine Mucus SARS-CoV-2 (PCR) Negative SARS-CoV-2 Influenza Type A (PCR) NEGATIVE Influenza Type B (PCR) NEGATIVE SARS-CoV-2 Ag (Rapid) POC Glucose 05/22/22 05/22/22 05/22/22 12:32 13:37 16:30 WBC RBC Hgb Hct MCV MCH MCHC RDW Coeff of Héctor Plt Count Neut % (Auto) Lymph % (Auto) [place] % (Auto) Eos % (Auto) Baso % (Auto) Neut # (Auto) Lymph # (Auto) [place] # (Auto) Eos # (Auto) Baso # (Auto) Abs Immat Gran (auto) D-Dimer Quant (PE/DVT) VBG pH VBG pCO2 VBG pO2 VBG HCO3 Sodium Potassium Chloride Carbon Dioxide BUN Creatinine Estimated Creat Clear Glucose Lactate 1.2 1.5 Calcium Total Bilirubin Direct Bilirubin AST ALT Alkaline Phosphatase Troponin I C-Reactive Protein Total Protein Albumin Lipase Urine Color [place] A Urine Appearance Cloudy A Urine pH 5.5 Ur Specific [place] >= 1.030 Urine Protein 2+ A Urine Glucose (UA) Negative Urine Ketones Negative Urine Blood Trace-intact A Urine Nitrite Negative Urine Bilirubin 1+ A Urine Urobilinogen 0.2 Ur Leukocyte Esterase Negative Urine RBC 2-5 A Urine WBC 0-2 Ur Squamous Epith Cells Few Amorphous Sediment Few A Urine Bacteria Moderate A Urine Mucus Few A SARS-CoV-2 (PCR) Influenza Type A (PCR) Influenza Type B (PCR) SARS-CoV-2 Ag (Rapid) POC Glucose 05/22/22 05/22/22 05/23/22 16:33 20:29 06:32 WBC 17.98 H RBC 4.55 Hgb 13.1 Hct 40.7 MCV 90 MCH 29 MCHC 32 RDW Coeff of Héctor 13.7 Plt Count 162 Neut % (Auto) 91.9 H Lymph % (Auto) 2.8 L [place] % (Auto) 4.9 Eos % (Auto) 0.0 Baso % (Auto) 0.1 Neut # (Auto) 16.50 H Lymph # (Auto) 0.50 L [place] # (Auto) 0.90 Eos # (Auto) 0.00 Baso # (Auto) 0.00 Abs Immat Gran (auto) 0.05 D-Dimer Quant (PE/DVT) VBG pH VBG pCO2 VBG pO2 VBG HCO3 Sodium Potassium Chloride Carbon Dioxide BUN Creatinine Estimated Creat Clear Glucose Lactate Calcium Total Bilirubin Direct Bilirubin AST ALT Alkaline Phosphatase Troponin I 0.08 H* C-Reactive Protein Total Protein Albumin Lipase Urine Color Urine Appearance Urine pH Ur Specific [place] Urine Protein Urine Glucose (UA) Urine Ketones Urine Blood Urine Nitrite Urine Bilirubin Urine Urobilinogen Ur Leukocyte Esterase Urine RBC Urine WBC Ur Squamous Epith Cells Amorphous Sediment Urine Bacteria Urine Mucus SARS-CoV-2 (PCR) Influenza Type A (PCR) Influenza Type B (PCR) SARS-CoV-2 Ag (Rapid) Cancelled POC Glucose 05/23/22 05/23/22 06:32 10:00 WBC RBC Hgb Hct MCV MCH MCHC RDW Coeff of Héctor Plt Count Neut % (Auto) Lymph % (Auto) [place] % (Auto) Eos % (Auto) Baso % (Auto) Neut # (Auto) Lymph # (Auto) [place] # (Auto) Eos # (Auto) Baso # (Auto) Abs Immat Gran (auto) D-Dimer Quant (PE/DVT) VBG pH VBG pCO2 VBG pO2 VBG HCO3 Sodium 137 Potassium 3.2 L Chloride 106 Carbon Dioxide 27 BUN 26 Creatinine 1.1 Estimated Creat Clear 37.57 Glucose 203 H Lactate Calcium 7.7 L Total Bilirubin 1.2 Direct Bilirubin 0.7 H AST 219 H ALT 318 H Alkaline Phosphatase 153 H Troponin I C-Reactive Protein Total Protein 5.6 L Albumin 3.2 L Lipase Urine Color Urine Appearance Urine pH Ur Specific [place] Urine Protein Urine Glucose (UA) Urine Ketones Urine Blood Urine Nitrite Urine Bilirubin Urine Urobilinogen Ur Leukocyte Esterase Urine RBC Urine WBC Ur Squamous Epith Cells Amorphous Sediment Urine Bacteria Urine Mucus SARS-CoV-2 (PCR) Influenza Type A (PCR) Influenza Type B (PCR) SARS-CoV-2 Ag (Rapid) POC Glucose 186 H
[2022-05-23] MEDS: SODIUM CHLORIDE 0.9 % (FLUSH) 10 ML SYRINGE IVF (11:38)
[2022-05-23] MEDS: POTASSIUM CHLORIDE 10 MEQ, LIDOCAINE 1 % 1 ML in 0.9 % SODIUM CHLORIDE 100 ml 100 ML 106 MEQ IVPB ×3 (12:18→14:40)
[2022-05-23 13:03] LABS: Troponin I* 0.09 ng/mL (0.01-0.04)
--- NOTE | 2022-05-23 14:24 | PC.NURSE ---
Addendum entered by Samantha Mary RN 05/23/22 15:06: Pt. transported via EMS to [place] at 1500. Dilaudid administered at 1500 for pain. Third bump of Potassium infusing at DC Original Note: Pt. is sleepy and oriented to person. Dtr in room. NPO since 05/22/22, pt. reports pain 5/10, Dilaudid given and tolerated well. Pt. has been afebrile. Patent IV in L and Rt. AC. Cath emptied @1420 w/175CC dark trudi urine. Pt. receiving 3L of oxygen and maintaining 91-93% O2. Received two bumps of Potassium 10Meq each. Awaiting transport to [facility] for interventional radiology and abscess draining.
[2022-05-23 14:37] LABS: Lactate* 0.8 mmol/L (0.5-1.9)
[2022-05-23 15:09] LABS: Potassium* 4.1 mmol/L (3.6-5.1)
[2022-05-23 16:01] LABS: Troponin I* 0.06 ng/mL (0.01-0.04)
--- NOTE | 2022-05-23 16:09 | PC.NURSE ---
Critical Troponin 0.06 called to [facility]
--- NOTE | 2022-05-25 16:56 | P.DS_ITS ---
DS: Providers Provider Date of admission: 05/22/22 20:32 Primary care physician: Not a Local Provider Admitting Clinician: Trevor Milan MD Consults: 05/22/22 23:22 Consult to Occupational Therapy [CONS] Routine Comment: Reason(s) for OT Consult:: Difficulty Managing ADLs Any Restrictions?:: Unknown Consult to Physical Therapy [CONS] Routine Comment: Reason(s) for PT Consult:: Unstable Gait Any Restrictions?:: Unknown Attending Physician on discharge: Ruel Sales MD DS: Summary Hospital Course Hospital Course: 88-year-old woman with known cognitive impairment, presumably dementia not otherwise specified, presented yesterday with fever, abdominal pain, and altered mental status.? In assessing her a CT scan of the abdomen and pelvis was obtained which demonstrated an intra-abdominal abscess near the ascending colon and cecum, with a differential diagnosis including ruptured appendicitis with abscess, ruptured diverticulum with abscess, ruptured cancer with abscess.? While in emergency department efforts were made to transfer the patient to tertiary medical care facility across the region and state.? There were no bed availabilities.? Discussion was held with [facility], [place], [place], and the on-call physician agreed that patient warranted admission but again the 2 had no beds.? They did place her on a cue such that when the bed became available they would call us.? We still have not heard back from them.? We have called them and confirmed that she is on the cue. Patient indicates she is feeling a little better today when she rests still.? Still has abdominal discomfort with movement and with palpation.? Her mentation is still not normalized according to the patient's daughter who is present with us.? She is NPO.? She is receiving IV fluids.? Continues on IV antibiotics.? Pain, nausea, vomiting, under better control.? She denies chest heaviness, pressure, tightness, or pain.? Denies syncope or near-syncope.? Denies palpitations.? Denies cough.? Denies dyspnea at rest, paroxysmal nocturnal dyspnea, or orthopnea.? States bowel and bladder habits are satisfactory. specifically denies diarrhea, hematochezia, melena, hematemesis, hematuria, urinary frequency, dysuria, or urgency.? Weaker than usual.? Reportedly usually independent.? Now requires assistance with transferring and movement. (1) Intra-abdominal abscess: ?Problem details: CT Abd/Pelvis 05/22/22: 3.8 x 2.2 x 7.5 abscess posterior to cecum and ascending colon ?Status:?Acute ?Assessment and Plan: Patient warrants level of service and care beyond what we are able to provide her with. We have attempted multiple tertiary care medical facilities in the [facility] and there is currently no bed availability. We are on the waiting cue for the patient to be transferred to the [facility], [place], [place]. Meanwhile she is receiving appropriate IV antibiotics.? She is on IV fluids.? Is NPO.? Receiving analgesics and antiemetics. Eventually we were able to find bed availability for patient at [place], [place]. Patient is transferred there via land ambulance. Patient and daughter are in total agreement with this. Time Spent with Patient Time attestation: Total time spent providing and/or coordinating discharge services: Time spent: Greater than 30 minutes Exam Narrative: Exam Narrative: Appears ill.? Appears tired.? Awake, alert, oriented to self, knows she is in the hospital, re-orientable to time.? Cooperative.? Friendly.? Mood and affect are congruent. Lungs fairly clear to auscultation save some mild decreased breath sounds in both bases.? No wheezing, rhonchi, or rales. Heart tones with regular rhythm, normal S1-S2.? Soft systolic murmur left upper sternal border.? No gallop or rub.? PMI not laterally displaced. Abdomen with active bowel sounds, soft, subjective discomfort to palpation in epigastrium and right side.? No rebound or guarding. Extremities without edema.? Palpable pulses upper and lower extremities.? Capillary refill less than 3 seconds in fingers and toes. Skin is dry, intact, thin. No obvious focal motor neurologic deficits. DS: Data Data Completed and Pending Labs on day of discharge: Preliminary micro results at discharge 05/22/22 13:32 Blood Culture - Preliminary Blood NO GROWTH AFTER 72 HOURS 05/22/22 13:37 Blood Culture - Preliminary Blood NO GROWTH AFTER 72 HOURS Discharge Plan Discharge Disposition: [facility] Date of Admission: 05/22/22 20:32 Attending Provider on Discharge: Isaiah Hester Primary Care Provider: Provider,Not a Local Condition: Critical Discharge Medications: Continued duloxetine 60 mg capsule,delayed release(DR/EC) 120 mg PO DAILY 0RF fluticasone propionate 50 mcg/actuation spray,suspension 1 spray INTRANASAL BID 0RF lisinopril 20 mg tablet 20 mg PO DAILY 0RF metoprolol succinate 25 mg tablet extended release 24 hr 25 mg PO DAILY 0RF quetiapine 25 mg tablet 25 mg PO TID PRN (Reason: agitation) 0RF Spiriva with HandiHaler 18 mcg capsule, w/inhalation device 1 cap INHALATION DAILY 0RF multivitamin [Multiple Vitamins] Tablet 1 tab PO DAILY 0RF cholecalciferol (vitamin D3) 50 mcg (2,000 unit) tablet 2,000 unit PO DAILY 0RF fluticasone propion-salmeterol [Wixela Inhub] 250-50 mcg/dose blister with dev ice 1 inh INHALATION BID 0RF aspirin 325 mg tablet,delayed release (DR/EC) 325 mg PO HS 0RF atorvastatin 10 mg tablet 10 mg PO HS 0RF cetirizine 10 mg tablet 10 mg PO HS 0RF acetaminophen 500 mg tablet 1,000 mg PO TID PRN (Reason: pain) 0RF albuterol sulfate 90 mcg/actuation HFA aerosol inhaler 2 puff INHALATION Q4H PRN (Reason: shortness of breath or wheezing) 0RF mirtazapine 45 mg tablet 45 mg PO HS 0RF Discharge Orders: Discharge Order (Routine); Ordered 05/25/22 Ordered By: Isaiah Hester Follow Up Appointments: [facility] [Outside] (Patient transferred to [facility]. ) Provider,Not a Local [Primary Care Provider] - Hospital Course: 88-year-old woman with known cognitive impairment, presumably dementia not otherwise specified, presented yesterday with fever, abdominal pain, and altered mental status.? In assessing her a CT scan of the abdomen and pelvis was obtained which demonstrated an intra-abdominal abscess near the ascending colon and cecum, with a differential diagnosis including ruptured appendicitis with abscess, ruptured diverticulum with abscess, ruptured cancer with abscess.? While in emergency department efforts were made to transfer the patient to tertiary medical care facility across the region and state.? There were no bed availabilities.? Discussion was held with [facility], [facility], [place], [place], and the on-call physician agreed that patient warranted admission but again the 2 had no beds.? They did place her on a cue such that when the bed became available they would call us.? We still have not heard back from them.? We have called them and confirmed that she is on the cue. Patient indicates she is feeling a little better today when she rests still.? Still has abdominal discomfort with movement and with palpation.? Her mentation is still not normalized according to the patient's daughter who is present with us.? She is NPO.? She is receiving IV fluids.? Continues on IV antibiotics.? Pain, nausea, vomiting, under better control.? She denies chest heaviness, pressure, tightness, or pain.? Denies syncope or near-syncope.? Denies palpitations.? Denies cough.? Denies dyspnea at rest, paroxysmal nocturnal dyspnea, or orthopnea.? States bowel and bladder habits are satisfactory. specifically denies diarrhea, hematochezia, melena, hematemesis, hematuria, urinary frequency, dysuria, or urgency.? Weaker than usual.? Reportedly usually independent.? Now requires assistance with transferring and movement. (1) Intra-abdominal abscess: ?Problem details: CT Abd/Pelvis 05/22/22: 3.8 x 2.2 x 7.5 abscess posterior to cecum and ascending colon ?Status:?Acute ?Assessment and Plan: Patient warrants level of service and care beyond what we are able to provide her with. We have attempted multiple tertiary care medical facilities in the state of [place] and there is currently no bed availability. We are on the waiting cue for the patient to be transferred to the [facility], [place], [place]. Meanwhile she is receiving appropriate IV antibiotics.? She is on IV fluids.? Is NPO.? Receiving analgesics and antiemetics. Eventually we were able to find bed availability for patient at [place], [place]. Patient is transferred there via land ambulance. Patient and daughter are in total agreement with this.
== END 2022-05-23 15:00 | disposition short-term general hospital (02) | DRG 372 ==
LOC: ED 20:08 → MEDSURG 20:32
PROVIDERS: Internal Medicine; Admitting Provider Hospitalist; Emergency Provider Family Medicine; Visit Provider Family Medicine
DX: K65.1 Peritoneal abscess (principal); E84.9 Cystic fibrosis, unspecified; I25.10 Atherosclerotic heart disease of native coronary artery without angina pectoris; E11.9 Type 2 diabetes mellitus without complications; J44.9 Chronic obstructive pulmonary disease, unspecified; F03.90 Unspecified dementia, unspecified severity, without behavioral disturbance, psychotic disturbance, mood disturbance, and anxiety; F41.9 Anxiety disorder, unspecified; F32.A Depression, unspecified; G40.909 Epilepsy, unspecified, not intractable, without status epilepticus; I10 Essential (primary) hypertension; E78.5 Hyperlipidemia, unspecified; E66.9 Obesity, unspecified; I73.9 Peripheral vascular disease, unspecified; M48.061 Spinal stenosis, lumbar region without neurogenic claudication; Z87.891 Personal history of nicotine dependence; K57.90 Diverticulosis of intestine, part unspecified, without perforation or abscess without bleeding; M81.0 Age-related osteoporosis without current pathological fracture
CPT/HCPCS: 36415; 71260; 74177; 80048; 80076; 81003; 81015; 82803; 82947; 83605; 83690; 84132; 84484; 85025; 85379; 86140; 87040; 87086; 87426; 87502; 87635; 93005; 94761; 99284; 99285; G0378; C9113; J1170; J1940; J2270; J2405; J2543; J3480; J7042; J7120; Q9967

== ENCOUNTER 2022-05-23 14:48 | Outpatient (CLI) | payer OTHER, SELFPAY | END 2022-05-23 14:49 | disposition home or self-care (01) | LOC: AMB 05-31 17:53 | PROVIDERS: Visit Provider Emergency Medicine | DX: K65.1 Peritoneal abscess (principal); R50.9 Fever, unspecified; R41.82 Altered mental status, unspecified; R10.9 Unspecified abdominal pain | CPT/HCPCS: A0425; A0427 ==

== ENCOUNTER 2022-06-14 10:44 | Inpatient (IN) | payer OTHER, SELFPAY ==
[2022-06-14 10:00] VITALS: TEMP 36.2; O2SAT 98
[2022-06-14 12:30] VITALS: BP 146/71; PULSE 94; RESP 16; TEMP 37.2; O2SAT 93
--- NOTE | 2022-06-14 13:25 | PC.NURSE ---
Addendum entered by Nan Noble RN 06/14/22 16:18: Error made: Resident does not have DX of sepsis at this time. Original Note: Admit-Admitted from [facility] in [place], arrived via Transport in W/C @ 1230, Here for rehab with a DX of acute appendix,Sepsis, localized peritonitis has a HX of COPD,HTN, transferred into recliner with assist of 1 , was given lunch Yes I am hungry, I will eat anything Orientation was given to [facility] at this time was confused to day of the week when told it was Sunday stated Nobody told me where I am I must of left the hospital yesterday and just got here today, Does anybody know I am here orientated to place,date. VSS.
--- NOTE | 2022-06-14 13:30 | PC.NURSE ---
Resident was admiited from [facility] today with DX of intra-abdominal abscess, diverticulosis, dementia, anxiety, depression, COPD, epilepsy, PVD, lumbar spinal stenosis, hypertension, hyperlipidemia, osteoporosis. Qualifying hospital stay was 05/23/22-06/14/22. Today will be her first day of coverage. Her coverage will be [employer]. Resident and daughter updated of coverage due to intermediate and therapy needs following surgery. Resident will receive pain medication and monitoring, PT/OT 5x wk, s/s infection at surgery site until resident meets goals.
--- NOTE | 2022-06-14 15:13 | PC.NURSE ---
Verbal order with read back: Discharged medications reviewed and continue as ordered by discharging provider at [place] per Hilaria Alcantara NP.
[2022-06-14 16:03] LABS: SARS PCR* Negative SARS-CoV-2 (Negative)
[2022-06-14] MEDS: METOPROLOL TARTRATE 25 MG TABLET 50 MG PO (20:31)
[2022-06-14] MEDS: FLUTICASONE/SALMETEROL 250/50 INH (20:31)
[2022-06-14] MEDS: APIXABAN 5 MG TABLET PO (20:31)
[2022-06-14] MEDS: FLUTICASONE PROPIONATE NASAL 1 SPRAY NOSTRIL-B (20:31)
[2022-06-14] MEDS: ATORVASTATIN 10 MG TABLET PO (20:34)
[2022-06-14] MEDS: CETIRIZINE HCL 10 MG TABLET PO (20:35)
[2022-06-14] MEDS: MIRTAZAPINE 15 MG TABLET 45 MG PO (20:35)
--- NOTE | 2022-06-14 21:49 | PC.NURSE ---
Admit F/U: Resident's COVID swab completed and brought to lab. Resident's VS taken @ 1515 T 97.9, P 88, RR 17, B/P 137/80 O2 92% on 2L. No complaints of pain or discomfort at this time. Daughter Michelle here visiting.
--- NOTE | 2022-06-14 21:53 | PC.NURSE ---
Admit F/U: Resident had poor appetite this evening for dinner. Stated she was not very hungry. Offered snacks and ensure but was declined. Had large loose BM this evening. VS taken @ 1715 T 97, P 84, RR 16, B/P 138/82, O2 92% on 2L via n/c. Resident denies any pain or discomfort.
--- NOTE | 2022-06-14 21:57 | PC.NURSE ---
Admit F/U: Resident's skin assessment completed. Bruise on right forearm. Surgical incision site on ABD appears healed and is scabbed over. No s/s of infection near surgical site. Wears ABD binder. No other issues at this time. VS taken @ 2114 T 97.4, P 96, RR 17, B/P 147/82, O2 90% on 2L via n/c. In bed watching TV at this time.
--- NOTE | 2022-06-15 01:04 | PC.NURSE ---
Admit status for 0030---Res. was lying in bed. O2 on at 2l/nc. VS 158/86 97.2-92-20. O2 sat 90%. Wanted to get up and walk to the BR. Once she sat up she said she couldn't do it. Would try going in the w/c. Got her the w/c. Then stated she couldn't do it. Got her a bedside commode but she wouldn't try that either. Complained of being too SOB. Assisted back into bed. Better once back in bed with HOB elevated.
[2022-06-15] MEDS: ALBUTEROL INHALER 2 PUFF IH ×2 (04:45→19:01)
--- NOTE | 2022-06-15 06:29 | PC.NURSE ---
Admit status for 0430---Awake and wanting to go to the BR. VS 174/86 98-96-20. O2 sat 93% on 2l/nc. Sat up on the edge of the bed. Complained of having trouble breathing. Sat for a minute to catch her breath. Would not get up to the BR then. Was able to transfer to and use the bedside commode. Voided good amt dark trudi urine. Back to bed. Again c/o not being able to breathe. Respirations 24/min. Did use Albuterol Inhaler at 0445 with relief. O2 was increased to 3L for toileting.
[2022-06-15] MEDS: APIXABAN 5 MG TABLET PO ×2 (08:07→16:25)
[2022-06-15] MEDS: METOPROLOL TARTRATE 25 MG TABLET 50 MG PO ×2 (08:08→16:25)
[2022-06-15] MEDS: lisinopriL 20 MG TABLET PO (08:08)
[2022-06-15] MEDS: FLUTICASONE PROPIONATE NASAL 1 SPRAY NOSTRIL-B ×2 (08:08→16:25)
[2022-06-15] MEDS: MULTIVITAMIN/MINERALS 1 TABLET 1 TAB PO (08:09)
[2022-06-15] MEDS: FLUTICASONE/SALMETEROL 250/50 INH ×2 (08:10→16:25)
[2022-06-15] MEDS: SPIRIVA HANDIHALER INH (08:11)
[2022-06-15] MEDS: polyethylene glycoL 3350 17 GM PACK PO (08:12)
[2022-06-15] MEDS: SENNOSIDES 1 TAB TABLET PO (08:13)
[2022-06-15] MEDS: QUETIAPINE 25 MG TABLET 12.5 MG PO (08:13)
--- NOTE | 2022-06-15 09:52 | PC.NURSE ---
Addendum entered by Moira Centeno LPN 06/15/22 09:55: B/P 175/78, P95, R22, T97.8 O2 96% Original Note: F/U: admit: Vitals taken and charted. Resident is refusing to get out of bed and therapy. Is confused, stating she does not know where she is, why she is here
[2022-06-15 11:37] VITALS: TEMP 36.6; O2SAT 91
--- NOTE | 2022-06-15 12:37 | PC.NURSE ---
Status/Order: Resident seen by SUPERVISOR BILLPOSTINGMaricruz. Order: Lorazepam 0.5mg PO daily @ 0800.
[2022-06-15] MEDS: ATORVASTATIN 10 MG TABLET PO (19:01)
[2022-06-15] MEDS: MIRTAZAPINE 15 MG TABLET 45 MG PO (19:01)
[2022-06-15] MEDS: CETIRIZINE HCL 10 MG TABLET PO (19:01)
[2022-06-15 21:54] VITALS: PULSE 84
--- NOTE | 2022-06-15 22:21 | PC.NURSE ---
Status: Resident has +2 pitting edema on left foot. Intervention in place to elevate legs while in recliner and in bed. Resident denies any pain or discomfort. Noted in CODING CLERK book.
[2022-06-16] MEDS: APIXABAN 5 MG TABLET PO ×2 (08:35→16:05)
[2022-06-16] MEDS: lisinopriL 20 MG TABLET PO (08:35)
[2022-06-16] MEDS: FLUTICASONE PROPIONATE NASAL 1 SPRAY NOSTRIL-B ×2 (08:35→16:05)
[2022-06-16] MEDS: MULTIVITAMIN/MINERALS 1 TABLET 1 TAB PO (08:36)
[2022-06-16] MEDS: METOPROLOL TARTRATE 25 MG TABLET 50 MG PO ×2 (08:36→16:05)
[2022-06-16] MEDS: SPIRIVA HANDIHALER INH (08:38)
[2022-06-16] MEDS: FLUTICASONE/SALMETEROL 250/50 INH ×2 (08:38→16:05)
[2022-06-16] MEDS: polyethylene glycoL 3350 17 GM PACK PO (08:38)
[2022-06-16] MEDS: SENNOSIDES 1 TAB TABLET PO (08:38)
[2022-06-16] MEDS: QUETIAPINE 25 MG TABLET 12.5 MG PO (08:39)
[2022-06-16 10:28] VITALS: TEMP 36.1; O2SAT 93
--- NOTE | 2022-06-16 13:43 | PC.NURSE ---
Status: Resident stayed in bed most of the time. Needs a lot of encouragement to get up/move. 02 sat 92-93% with 02 2L/NC. Has PT, OT.
[2022-06-16] MEDS: ATORVASTATIN 10 MG TABLET PO (19:36)
[2022-06-16] MEDS: MIRTAZAPINE 15 MG TABLET 45 MG PO (19:36)
[2022-06-16] MEDS: CETIRIZINE HCL 10 MG TABLET PO (19:36)
[2022-06-16 20:00] VITALS: PULSE 72
[2022-06-17] MEDS: FLUTICASONE PROPIONATE NASAL 1 SPRAY NOSTRIL-B ×2 (09:00→16:45)
[2022-06-17] MEDS: FUROSEMIDE 40 MG TABLET 20 MG PO (09:00)
[2022-06-17] MEDS: APIXABAN 5 MG TABLET PO ×2 (09:00→16:45)
[2022-06-17] MEDS: lisinopriL 20 MG TABLET PO (09:00)
[2022-06-17] MEDS: MULTIVITAMIN/MINERALS 1 TABLET 1 TAB PO (09:01)
[2022-06-17] MEDS: METOPROLOL TARTRATE 25 MG TABLET 50 MG PO ×2 (09:01→16:45)
[2022-06-17] MEDS: FLUTICASONE/SALMETEROL 250/50 INH ×2 (09:03→17:01)
[2022-06-17] MEDS: SPIRIVA HANDIHALER INH (09:04)
[2022-06-17] MEDS: SENNOSIDES 1 TAB TABLET PO (09:04)
[2022-06-17] MEDS: polyethylene glycoL 3350 17 GM PACK PO (09:04)
[2022-06-17] MEDS: QUETIAPINE 25 MG TABLET 12.5 MG PO (09:05)
[2022-06-17 10:00] VITALS: TEMP 36.8; O2SAT 96
--- NOTE | 2022-06-17 13:42 | PC.NURSE ---
Medication-Himanshu senior solutions architect was called again to send a RX for resident's Lorazepam, medical underwriter was told by Himanshu RX was sent on 06/15 to [facility], medical underwriter asked for a RX to be sent again to [facility].
--- NOTE | 2022-06-17 13:58 | PC.NURSE ---
Medicare-Refused to get out of bed @ 0800 to eat breakfast and have ADL's done I only want juice that's it did get dressed @ 1000, slept all AM, woken @ 1200 for lunch placed in W/C refused to eat I just can't I am not hungry was offered many choice's declined all. Is becoming restless at times, moving in bed back and forth.
[2022-06-17] MEDS: QUETIAPINE 25 MG TABLET PO (14:18)
--- NOTE | 2022-06-17 14:32 | PC.NURSE ---
Behavior-Baggage Inspector entered resident's room, resident was sitting in her W/C in bathroom with the lights out, asked if needed help I have to go the bathroom was assisted onto toilet voided small amt brought back out by bed, snacks were offered and refused, noted anxiety level was increasing, PRN Seroquel was given at this time for restlessness.
[2022-06-17] MEDS: OXYCODONE 5 MG TABLET 2.5 MG PO (16:46)
[2022-06-17] MEDS: ATORVASTATIN 10 MG TABLET PO (19:21)
[2022-06-17] MEDS: CETIRIZINE HCL 10 MG TABLET PO (19:21)
[2022-06-17] MEDS: MIRTAZAPINE 15 MG TABLET 45 MG PO (19:21)
[2022-06-17 21:07] VITALS: PULSE 80
[2022-06-17 21:18] VITALS: BP 120/75
--- NOTE | 2022-06-17 21:47 | PC.NURSE ---
Status: Resident was anxious for a few hours on the PM shift was given snacks and a warm towel. When that didn't help resident stated that she was having pain of 8 in her stomach. Was given an Oxycodone 2.5mg at 1646. Was calm/pain free the rest of the shift.
[2022-06-18] MEDS: OXYCODONE 5 MG TABLET 2.5 MG PO ×3 (01:27→12:42)
--- NOTE | 2022-06-18 04:28 | PC.NURSE ---
Resident receives Seroquel for anxiety, negative statements, short temper, and shortness of breath. No side effects noted from the mediation.
[2022-06-18] MEDS: FLUTICASONE PROPIONATE NASAL 1 SPRAY NOSTRIL-B ×2 (08:12→15:10)
[2022-06-18] MEDS: APIXABAN 5 MG TABLET PO ×2 (08:12→15:10)
[2022-06-18] MEDS: FUROSEMIDE 40 MG TABLET 20 MG PO (08:13)
[2022-06-18] MEDS: lisinopriL 20 MG TABLET PO (08:13)
[2022-06-18] MEDS: METOPROLOL TARTRATE 25 MG TABLET 50 MG PO ×2 (08:13→15:10)
[2022-06-18] MEDS: MULTIVITAMIN/MINERALS 1 TABLET 1 TAB PO (08:13)
[2022-06-18] MEDS: FLUTICASONE/SALMETEROL 250/50 INH ×2 (08:14→15:10)
[2022-06-18] MEDS: SPIRIVA HANDIHALER INH (08:15)
[2022-06-18] MEDS: SENNOSIDES 1 TAB TABLET PO (08:16)
[2022-06-18] MEDS: polyethylene glycoL 3350 17 GM PACK PO (08:16)
[2022-06-18] MEDS: QUETIAPINE 25 MG TABLET 12.5 MG PO (08:17)
[2022-06-18] MEDS: LORazepam 0.5 MG TABLET PO (08:19)
[2022-06-18 09:58] VITALS: TEMP 36.3; O2SAT 95
--- NOTE | 2022-06-18 10:00 | PC.NURSE ---
Status-Guide Excursion entered room with TERI, agreed to get up to use bathroom, 2 person assist from bed to W/C I can't stand anymore you do it had eye's closed job specification writer asked resident to open eye's I can't it hurt's 2 person transfer onto toilet resident would not assist by placing hands on rails I just can't I can't see refused to open eye's was sitting on toilet I asked to put on the toilet explained was sitting there, after void transferred back to W/C did open eye's I hurt again asked where the pain was started to rub her face Right here Confused to time and place, stated was living in [place], reorientated to place and time, job specification writer was giving 0800 medications Please no I can't swallow, my eye's hurt did take 3 pill's That is enough reproached was given couple more till had taken medication's, breakfast was brought in No I can't eat when checked on was sleeping in W/C, placed into recliner Thanks now leave me alone.
--- NOTE | 2022-06-18 13:01 | PC.NURSE ---
Status-Has been sleeping in recliner most of shift, remains to C/O pain when asked it is different area's her face,arm,eye's, PRN medication given per orders, reproached x2 to assist with care's, face was washed, agreed to have t-shirt and pant's on, At this time has refused to eat lunch, different options of food were offered,refused, medical writer called Dtr Michelle to see if any foods could be offered and to give update on status, Dtr stated At times Mom is worried about getting fat, it is worse since her surgery she will eat just 1-2 bite's I will bring in some food see if she will eat it.
[2022-06-18] MEDS: CETIRIZINE HCL 10 MG TABLET PO (19:16)
[2022-06-18] MEDS: ATORVASTATIN 10 MG TABLET PO (19:16)
[2022-06-18] MEDS: MIRTAZAPINE 15 MG TABLET 45 MG PO (19:16)
[2022-06-18 21:03] VITALS: BP 124/75; PULSE 79
--- NOTE | 2022-06-18 21:19 | PC.NURSE ---
Status: Residents daughter brought dinner for resident and resident ate a bowl of cereal for dinner also, had ice cream. Resident stated that she is lactose intolerant but, daughter says that she is not. Needed two assist to get off of the toilet and, into bed.
--- NOTE | 2022-06-19 07:39 | PC.NURSE ---
Week #1: Baseline care plan reviewed. No changes made. Nothing added to temporary care plan. Resident needs one assist with dressing and bathing. Limited assist with grooming and oral cares. Staff set up & assist as needed. Is on regular diet (lactose free with dairy products per resident). Feed self after set up, usually eats in bed . Needs a lot of encouragement to get up. No problems with chewing or swallowing reported. Pain: Has abd/back pain. Is not on routine pain medications. Has an order for Tylenol 1000mg TID PRN & hasn't used since admission, Oxycodone 2.5mg Q4H PRN & has used occasionally. Is able to verbalize need for pain.
[2022-06-19] MEDS: FUROSEMIDE 40 MG TABLET 20 MG PO (08:03)
[2022-06-19] MEDS: APIXABAN 5 MG TABLET PO ×2 (08:03→16:38)
[2022-06-19] MEDS: FLUTICASONE PROPIONATE NASAL 1 SPRAY NOSTRIL-B ×2 (08:03→16:38)
[2022-06-19] MEDS: lisinopriL 20 MG TABLET PO (08:04)
[2022-06-19] MEDS: METOPROLOL TARTRATE 25 MG TABLET 50 MG PO ×2 (08:04→16:38)
[2022-06-19] MEDS: MULTIVITAMIN/MINERALS 1 TABLET 1 TAB PO (08:04)
[2022-06-19] MEDS: SPIRIVA HANDIHALER INH (08:05)
[2022-06-19] MEDS: FLUTICASONE/SALMETEROL 250/50 INH ×2 (08:05→16:38)
[2022-06-19] MEDS: QUETIAPINE 25 MG TABLET 12.5 MG PO (08:06)
[2022-06-19] MEDS: polyethylene glycoL 3350 17 GM PACK PO (08:06)
[2022-06-19] MEDS: SENNOSIDES 1 TAB TABLET PO (08:06)
[2022-06-19] MEDS: LORazepam 0.5 MG TABLET PO (08:09)
[2022-06-19 09:49] VITALS: BP 128/72; PULSE 90; RESP 18; TEMP 36.8; O2SAT 90; O2SAT 94
--- NOTE | 2022-06-19 13:32 | PC.NURSE ---
Status: Resident got up in recliner, was assist of 2 staff to get into the recliner but did stand up with assist of 1 with PT. Resident was short with staff this shift ie: Get out of here I don't want to eat Resident had no verbal or nonverbal s/s of pain.
--- NOTE | 2022-06-19 14:23 | PC.NURSE ---
Addendum entered by Nan Noble RN 06/19/22 14:25: Daughter Michelle updated and in agreement with orders. Original Note: NEW ORDERS: RBVO per Hilaria Alcantara HARBOR TUG CAPTAIN: BMP, CBC, UA/UC stat DX increased confusion. Order placed.
[2022-06-19 14:46] VITALS: BMI 25.0
[2022-06-19 16:59] LABS: Appearance Urine Clear (Clear); Bilirubin Urine Negative (Negative); Blood Urine Negative (Negative); Color Urine Yellow (Yellow); Glucose Urine Negative (Negative); Ketones Urine Negative (Negative); Leukocyte Esterase Urine Trace (Negative); Nitrite Urine Negative (Negative); Protein Urine Negative (Negative); Urobilinogen Urine 0.2 (0.2-1.0)
[2022-06-19 17:08] LABS: RBC Urine 0-2 (0-2); Squamous Epithelial Cell Urine Few (None-Few)
[2022-06-19 17:09] LABS: Bacteria Urine Few; Hyaline Casts Urine Few (None-Few)
[2022-06-19] MEDS: CETIRIZINE HCL 10 MG TABLET PO (19:12)
[2022-06-19] MEDS: MIRTAZAPINE 15 MG TABLET 45 MG PO (19:12)
[2022-06-19] MEDS: ATORVASTATIN 10 MG TABLET PO (19:12)
--- NOTE | 2022-06-19 20:42 | PC.NURSE ---
Week #1---[facility] shift charting---baseline care plan reviewed. No changes made. Nothing added to temporary care plan. Is offered assist to get a drink of water when awake for cares. Will take a few sips or refuse. Pain---has c/o pain at [facility] x 2 since admission. Relief with prn Oxycodone 2.5 mg. Is on no scheduled pain meds. Meds available if needed: Tylenol 1000 mg tid prn, Diclofenac gel tid prn, and Oxycodoner 2.5 mg q4h prn.
[2022-06-19 21:16] VITALS: BP 151/71; PULSE 80
--- NOTE | 2022-06-19 21:34 | PC.NURSE ---
Status: Resident was having behaviors during the PM shift. Not eating dinner. Refusing oxygen. Saying I can't, I just can't when asked to stand up. Saying that she thought she was going to throw up.
--- NOTE | 2022-06-19 21:38 | PC.NURSE ---
Order: Himanshu'angela Cutler updated about UA. States that until UC comes back we are to encourage fluids.
[2022-06-19 21:51] VITALS: BP 151/71; PULSE 80; RESP 20; TEMP 36.4; O2SAT 90
--- NOTE | 2022-06-20 06:53 | REH.OT ---
Hot Liquid Safety Eval Patient is limited by Cognition with dementia physical deficits with weakness Use covered mug Only drink hot liquids at the table
[2022-06-20 07:38] LABS: Basophils Absolute Auto 0.19 K/uL (0.00-0.30); Basophils Percent Auto 2.1 % (0.0-3.0); Eosinophils Absolute Auto 0.01 K/uL (0.00-0.50); Eosinophils Percent Auto 0.1 % (0.0-7.0); Hematocrit 32.2 % (33.0-51.0); Hemoglobin* 9.8 gm/dL (12.0-16.0); Immature Granulocytes Abs Auto 0.09 K/uL (0.00-0.30); Lymphocytes Percent Auto 11.1 % (20-44); Mean Corpuscular HGB Conc 30 gm/dL (32-36); Mean Corpuscular Hemoglobin 28 pg (26-34); Mean Corpuscular Volume 93 fL (80-100); Monocytes Percent Auto 8.3 % (0.0-11.0); Neutrophils Percent Auto 77.4 % (42.0-72.0); Platelet Count* 317 K/uL (140-440); RDW Coefficient of Variation % 16.2 % (11.5-15.5); Red Blood Count 3.47 m/uL (4.00-5.20); White Blood Count* 8.91 K/uL (4.50-11.00)
[2022-06-20 07:44] LABS: Slide Review Reflex No
[2022-06-20 07:55] LABS: Chloride* 101 mmol/L (96-114); Potassium* 3.9 mmol/L (3.6-5.1); Sodium* 143 mmol/L (135-149)
[2022-06-20 07:58] LABS: Blood Urea Nitrogen* 15 mg/dL (7-30); Carbon Dioxide* 34 mmol/L (20-32); Creatinine* 0.7 mg/dL (0.5-1.5); Est. Creatinine Clearance* 37.85; Estimated Glomerular Filt Rate 90 ml/min
[2022-06-20 07:59] LABS: Calcium* 8.8 mg/dL (8.4-10.6); Glucose* 128 mg/dL (60-115)
[2022-06-20] MEDS: LORazepam 0.5 MG TABLET PO (08:15)
[2022-06-20] MEDS: OXYCODONE 5 MG TABLET 2.5 MG PO (08:23)
[2022-06-20 10:00] VITALS: TEMP 37; O2SAT 94
--- NOTE | 2022-06-20 10:26 | PC.NURSE ---
Status/ED-Hilaria [employer] AND [employer]ULAT[employer] OFF[employer]ERS here was updated on recent status, resident remains to refuse to eat, took Ativan and pain medication this AM, refused all other medications I will not take them C/O of pain in middle ABD, Dtr is here spoke with Hilaria, Per [employer] AND [employer]ULATORY OFFICERS will send to ED for evaluation, at this time BP 167/84 P-101 and irregular R-22 T-98.7 breathing is becoming Labored at times, right LS diminished,SATS @ 2L 88%, Call was placed to ED with report, will bring beverley to LT for transport to ED, Dtr is agreeable to this transfer.
--- NOTE | 2022-06-20 11:35 | PC.NURSE ---
Transferred to ED via [facility] @ 1100 dtr was with.
--- NOTE | 2022-06-20 22:16 | PC.NURSE ---
Admission Status: Resident is admitted as inpatient at the Med S[facility], as at 06/20/22. Bed Hold status will be determined by tomorrow, 06/21/22, according to daughter. Resident's Fluticasone Propionate spray is sent to Med Surg, per nurseYi's request. Hilda GAGNON, notified and updated.
--- NOTE | 2022-06-21 08:10 | PC.SOCIAL ---
Resident was admitted to [facility] on 06/20/2022 and her insurance covers a bed hold.
[2022-06-22] MEDS: FLUTICASONE PROPIONATE NASAL 1 SPRAY NOSTRIL-B (16:01)
[2022-06-22] MEDS: OXYCODONE 5 MG TABLET 2.5 MG PO (16:40)
[2022-06-22] MEDS: APIXABAN 5 MG TABLET PO (16:40)
[2022-06-22] MEDS: METOPROLOL TARTRATE 25 MG TABLET 50 MG PO (16:40)
[2022-06-22 17:00] VITALS: BP 169/82; PULSE 90; RESP 22; TEMP 36.9; O2SAT 88
[2022-06-22] MEDS: ATORVASTATIN 10 MG TABLET PO (19:50)
[2022-06-22 21:00] VITALS: BP 173/80; PULSE 85; RESP 20; TEMP 36.6; O2SAT 92
[2022-06-22 21:35] VITALS: BP 169/82; PULSE 85
--- NOTE | 2022-06-22 21:50 | PC.NURSE ---
Status: Resident back- took bites of yogurt for dinner and sips of water and rian venkata. Had to be reproached when several times to get to take meds. Continued to say I can't. when asked to do anything. Skin assessed 4 band-aids taken off no bruises noted from IVs. One bruise on back of right arm [id number] big. Monitor. Transferred with 1-2 assist. Was given oxycodone 2.5mg once for generalized pain.
--- NOTE | 2022-06-22 22:15 | PC.NURSE ---
Order change: Discontinued- cetirizine, vitamin D, multivitamin, diclofenac gel, fluticasone spray, Remeron. Started on; potassium chloride 20meq. Now PRN; ativan, senna and miralax
[2022-06-23 01:00] VITALS: BP 153/79; PULSE 114; RESP 20; TEMP 36.4; O2SAT 92
--- NOTE | 2022-06-23 01:45 | PC.NURSE ---
Readmit status for 0100---Res. awake and squirming in bed. States she has to pee. Attempted to get her up to the commode. Sat up on the edge of the bed and then stated, I can't do it. Assisted to lie down. Brief was already wet. Clean brief applied. O2 increased to 3l for cares. O2 sat on her fingers was in the 70's and 80's. Checked on her right ear and was 92%.
[2022-06-23 05:00] VITALS: BP 175/81; PULSE 102; RESP 20; TEMP 36.4; O2SAT 90
--- NOTE | 2022-06-23 05:13 | PC.NURSE ---
Readmit status for 0500---Has been sleeping most of the noc. Will mumble to herself at times. Hands very dry and cold. O2 sat on fingers was in the 80's. O2 sat on her ear was 90%. Brief was dry at this time. Did not want to get up to the BR or commode. Did take a couple sips of Sprite.
[2022-06-23] MEDS: APIXABAN 5 MG TABLET PO (08:23)
[2022-06-23] MEDS: FUROSEMIDE 40 MG TABLET 20 MG PO (08:23)
[2022-06-23] MEDS: lisinopriL 20 MG TABLET PO (08:24)
[2022-06-23] MEDS: METOPROLOL TARTRATE 25 MG TABLET 50 MG PO (08:24)
[2022-06-23] MEDS: POTASSIUM CHLORIDE 10 MEQ CAPSULE ER 20 MEQ PO (08:25)
[2022-06-23] MEDS: QUETIAPINE 25 MG TABLET 12.5 MG PO (08:25)
[2022-06-23] MEDS: SPIRIVA HANDIHALER INH (08:30)
[2022-06-23 09:00] VITALS: BP 174/91; PULSE 91; RESP 22; TEMP 36.2; O2SAT 92
--- NOTE | 2022-06-23 10:32 | PC.NURSE ---
Status: Was noted that resident is mottling to bilateral L/E & U/E with skin cool to the touch but torso is warm. B/P 174/91, P91, R22, O2 92% on 3L Breathing noted to be shallow. Dr Franklin here and updated
--- NOTE | 2022-06-23 11:24 | PC.NURSE ---
Covid Swab Test: Day 1 done and sent to lab.
[2022-06-23 12:45] VITALS: TEMP 36.2; O2SAT 92
--- NOTE | 2022-06-23 12:53 | PC.NURSE ---
Admit: Resident continues to have bilateral L/E & U/E mottling. Dr Franklin updated daughter and wrote new orders. Has no verbal or nonverbal s/s of pain at this time.
--- NOTE | 2022-06-23 12:59 | PC.NURSE ---
Addendum entered by Gregoria Chou RN 06/23/22 13:39: Urine Culture: Result noted by Dr. Franklin. Original Note: Status: Order: Dr. Franklin here. Updated of change in status: mottling, unable to swallow meds & food, increase weakness. Resident seen and daughter updated by MD of change in status & orders. Orders: Discontinue Albuterol inh, Fluticasone/Alhaji spray, Apixaban, Atovarstatin, Lisinopril, Metoprolol, Quetanapine, Lasix, Potassium. Start on Roxanol 5mg (0.25ml) Q1H PRN pain, dyspnea, distress, Lorazepam 2mg/cc 0.25cc (0.5mg) Q4H PRN for anxiety, insomnia, distress, Zofran 4mg Q6H PRN .
[2022-06-23 13:39] LABS: SARS PCR* Negative SARS-CoV-2 (Negative)
--- NOTE | 2022-06-23 14:26 | PC.NURSE ---
Order: Received v.o. from Maricruz FLORES to discontinue Tylenol & Oxycodone when Morphine arrives,
[2022-06-23] MEDS: COVID-19 VACC, MRNA(PFIZER)/PF 30 MCG/0.3 ML VIAL IM (15:50)
[2022-06-23] MEDS: LORazepam 0.5 MG TABLET PO (16:43)
[2022-06-23] MEDS: MORPHINE 20 MG/ML **CONCENTRATE** ORAL 5 MG PO ×2 (19:51→21:51)
[2022-06-23 21:46] VITALS: BP 183/81; PULSE 81; RESP 24; TEMP 35.8; O2SAT 84
--- NOTE | 2022-06-23 21:54 | PC.NURSE ---
Status: Resident c/o pain and appeared to be using abdominal muscles to breathe and was very SOB. Given Roxanol at 1951. Was somewhat effective. VS taken at 21:45 and RR is 24, Pulse is 104, O2 sats at 84% on 2L via n/c. Stated she was in pain with a response of yes but could express where or scale. Facial grimacing is observed. Additional dose of Roxanol at 21:51 was given. Mottling is also observed on upper thighs. Will let oncoming nurse to complete reassessment.
[2022-06-24] MEDS: MORPHINE 20 MG/ML **CONCENTRATE** ORAL 5 MG PO ×6 (00:34→23:54)
--- NOTE | 2022-06-24 03:13 | PC.NURSE ---
Status---Has been restless off and on. Keeps removing O2 cannula. Was given Roxanol 5 mg at 0034. Within 1/2 hour was less restless and left O2 on. O2 sat was 88% on 3l/nc. Has been incont. of urine x 1. When cares done will say, no, stop it! and then immediately say I'm sorry. Continues to have mottling on upper thighs which comes and goes. Took 1 sip of water and then refused any more.
--- NOTE | 2022-06-24 06:36 | PC.NURSE ---
Status---did receive another dose of Roxanol 5 mg at 0409 for restlessness. At 0430 was calmer and cooperative with cares. Brief was changed as she had been incont. of urine. Did allow staff to position her on her side. Took a couple sips of rian venkata. O2 sat 85% on 3l/nc.
[2022-06-24 10:28] VITALS: TEMP 36; O2SAT 86
[2022-06-24] MEDS: MAGNESIUM HYDROXIDE 30 ML ORAL.SUSP PO (10:41)
--- NOTE | 2022-06-24 10:47 | PC.NURSE ---
Status: Resident has been non-responsive this shift so far. Daughter was here for visit. Has had 0 intake so far. Was given morphine sulfate x1 due to resps 22 and O2 sat 86% on 3L.
--- NOTE | 2022-06-24 13:06 | PC.NURSE ---
Status: Resident had no oral intake, very little urine output. Some mottling noted to bilateral L/E. Was given prn morphine x2 this shift which was effective in keeping resident comfortable.
[2022-06-24 21:51] VITALS: BP 111/74; PULSE 72
--- NOTE | 2022-06-24 21:57 | PC.NURSE ---
Status: Daughter here visiting this afternoon. Brought in radio for music. Resident refused dinner and snacks offered. Resident became agitated, taking off oxygen and kicking off blankets. Was given PRN Ativan at 1936 which was somewhat effective. Had a few sips of rian venkata. Roxanol PRN given at 2042 prior to changing brief from urine incontinence. Had no BM this shift.
--- NOTE | 2022-06-24 23:58 | PC.NURSE ---
Status---Res. was awake and mumbling to herself. Was able to answer questions with yes/no answers. Legs mottled up to hips. Brief was wet. Was changed and repositioned on her right side. O2 sat 86% on 3l/nc. Respirations shallow and 36/min. Given Roxanol 5 mg.
--- NOTE | 2022-06-25 02:17 | PC.NURSE ---
Addendum entered by Lj Velasquez LPN 06/25/22 02:20: Respirations had gone down to 24/min at 0030 after receiving Roxanol at 2354. Original Note: Status---Mottling in legs is decreased at this time. Res. has been sleeping and awakens readily for cares. Brief was dry now. Repositioned to left side. Did help with turning. Refused anything to drink.
[2022-06-25] MEDS: MORPHINE 20 MG/ML **CONCENTRATE** ORAL 5 MG PO ×5 (04:03→19:30)
--- NOTE | 2022-06-25 05:00 | PC.NURSE ---
Status---was becoming more restless at 0400. Roxanol 5 mg given at 0403. At 0430 cares were done. Less restless. Brief was changed as she was wet. Minimal mottling noted now. Did take a couple sips of rian venkata. O2 remains on at 3l/nc.
--- NOTE | 2022-06-25 08:23 | PC.NURSE ---
Status: Resident is unresponsive at this time, breathing noted to be very shallow at 14. Skin to torso is warm and temp 96.4. Daughter called and updated, stated she will come in
[2022-06-25] MEDS: LORazepam 0.5 MG TABLET PO (09:15)
--- NOTE | 2022-06-25 09:56 | PC.NURSE ---
Status: Resident's daughter here at bedside. Was noted that resident is cayenne stoking with 10 to 20 second apneas. Has been given morphine sulfate and ativan for restlessness and comfort x1. Mottling continues to bilateral L/E & U/E.
[2022-06-25 12:38] VITALS: TEMP 36.1; O2SAT 88
--- NOTE | 2022-06-25 12:39 | PC.NURSE ---
Addendum entered by Moira Centeno LPN 06/25/22 12:48: Resident was also a no void this shift Original Note: Status: Daughter continues to be at bedside. Resident continues to have mottling to L/E & U/E along with face. Continues to have cayenne stoking with 15-20 second apneas. Spoke with daughter about dying process and she expressed understanding.
[2022-06-25 21:15] VITALS: BP 104/61; PULSE 59
--- NOTE | 2022-06-25 21:36 | PC.NURSE ---
Status: Resident's daughter at bedside. Res. having occasional 20 second periods of apnea. Brief was wet and was changed once. Ativan and Roxanol given for restlessness. Refused to drink anything this shift. Mottling is still observed bilaterally on lower extremities.
--- NOTE | 2022-06-26 03:42 | PC.NURSE ---
Week #2: Baseline care plan problems #20-29 reviewed. ? No changes made, and nothing added at this time.? Actively dying and with comfort care status in-placed, resident is being repositioned every two hours this shift, NOC..? Falls: No fall incidents since admission, 06/14/22
[2022-06-26] MEDS: MORPHINE 20 MG/ML **CONCENTRATE** ORAL 5 MG PO ×3 (06:22→10:19)
--- NOTE | 2022-06-26 09:56 | PC.NURSE ---
Status: At beginning of shift, resident was noted to have O2 off and O2 sat of 74%, respirations noted to be 36, resident was very agitated, kicking, scratching, throwing arms and legs around. Also stated It hurts. Resident was given morphine sulfate at 6:20am and 7:39am along with Ativan at 7:30am. Resident is now starting to be calm. Mottling to bilateral L/E along with 15 to 20 second periods of apnea
[2022-06-26] MEDS: LORazepam 0.5 MG TABLET PO (10:18)
[2022-06-26 10:33] VITALS: TEMP 35.8; O2SAT 85
--- NOTE | 2022-06-26 10:44 | PC.NURSE ---
RBVO Per Hilaria Alcantara BAND MACHINE OPERATOR: Morphine 0.25-1ml po q 1 hr PRN: Pain, Dyspnea, restlessness.
[2022-06-26] MEDS: MORPHINE 10 MG/0.5 ML ORAL SOLN PO ×4 (11:48→23:30)
--- NOTE | 2022-06-26 13:08 | PC.NURSE ---
Status: Resident has been restless entire shift, taking off cloths and O2. Is starting to settle down now. Received order for increase in morphine sulfate which she was given at 11:49. O2 sat continues to be between 80 and 86%, resp at this time 28, mottling to bilateral L/E. Daughter went home for a few hours. Has been turned and repositioned q2hrs with oral cares given
--- NOTE | 2022-06-26 16:48 | PC.NURSE ---
Week #2: Vital signs: Respirations have been high and, SPO2 has been lower than normal for resident. Resident is a fall risk. No noted falls in the last month. Temporary care plan reviewed, no change. Resident needs on assist for repositioning in bed. Transfers 1-2 assist with a gait belt and walker.
[2022-06-26] MEDS: bisacodyL 10 MG SUPP.RECT PR (17:10)
[2022-06-26 18:43] VITALS: BP 150/76; PULSE 61; RESP 22; TEMP 35.8; O2SAT 88
[2022-06-26 21:11] VITALS: BP 150/76; PULSE 61; TEMP 35.8; O2SAT 88
--- NOTE | 2022-06-26 21:52 | PC.NURSE ---
Status: Resident complained of pain but did not specify about where or how bad the pain was. Morphine 10mg was given at 1458 no further complaints from resident when asked if she had pain she would say no. Respirations went to 8-10 with apnea of 5 seconds. Resident had no BMs for 6 days was given a suppository at 1710 with results. Resident became a little restless at 2104 when asked if she was in pain she stated a little, 5mg Morphine given. When rechecked resident was very restless, took off O2 SPO2 was 88%, was thrashing around in bed, taking cloths off, and refusing care Ativan given at 2149.
[2022-06-26 23:00] VITALS: TEMP 36.4; O2SAT 84
[2022-06-27] MEDS: MORPHINE 10 MG/0.5 ML ORAL SOLN PO ×5 (02:06→18:26)
--- NOTE | 2022-06-27 04:59 | PC.NURSE ---
Status---has been restless off and on during the noc. Kept removing her O2 and taking off her gown. Given Roxanol 5 mg at 2330 with some relief. Had Roxanol 10 mg at 0206 with better relief. Ativan 0.5 mg given at 0410. Is resting quietly now with the O2 on. Mottling on legs and arms comes and goes depending on if she has the O2 on or not. Did have 2 small voidings and 1 small formed BM. Refused any oral fluids or oral care.
[2022-06-27 07:00] VITALS: TEMP 36.3; O2SAT 89
[2022-06-27] MEDS: SPIRIVA HANDIHALER INH (08:17)
--- NOTE | 2022-06-27 10:15 | PC.NURSE ---
Order-Hilaria GAS DISPENSER here was updated on status, order for 02 is 3L per NC to keep STATS above 88%.
--- NOTE | 2022-06-27 14:26 | PC.NURSE ---
Status-Did not open eye's all shift, has been unresponsive, bed bath was given in AM, skin cool to the touch, mottling at times, 02 SATS 87-88% on 3L per NC, Has voided small amt x1 this shift, Medicated with PRN med's for comfort, is resting calmly and relaxed at this time, has 40-50Sec's of Apnea, mouth breathed most of shift, T&R every 1-2 hours.
--- NOTE | 2022-06-27 14:34 | PC.NURSE ---
Vaughn FLORES here was updated on resident's current status, remaining oral medications were D/C'd.
[2022-06-27 15:00] VITALS: TEMP 36.9; O2SAT 88
[2022-06-27 16:00] VITALS: BP 152/78; PULSE 70
[2022-06-27 23:00] VITALS: TEMP 37.3; O2SAT 82
[2022-06-28] MEDS: MORPHINE 10 MG/0.5 ML ORAL SOLN PO ×2 (02:28→04:46)
--- NOTE | 2022-06-28 02:36 | PC.NURSE ---
Status---Has been unresponsive. No agitation. Has left O2 on. Repositioned x 2 so far tonight. Was incont. small amt. urine x1. Oral cares done. Respirations have been 8-12/minute with 15-20 second periods of apnea. Roxanol 5 mg given at 0228 for comfort. No mottling. Temp was 99.1. O2 sat 82% on 3l/nc.
--- NOTE | 2022-06-28 05:15 | PC.NURSE ---
Status---This am res. was starting to moan. Color ashen. Unresponsive. Respirations more labored and 10-12/min. Has receive Roxanol 5 mg x 2 during the noc. Given Ativan at 0511. Daughter updated and will be coming in.
--- NOTE | 2022-06-28 05:35 | PC.NURSE ---
at 0520---Res. took a couple of agonal respirations and then they ceased. Pupils became fixed and dilated. No AP heard. Daughter called and updated. Will not be coming in now. Permission to call [facility] given.
--- NOTE | 2022-06-28 05:38 | PC.NURSE ---
[facility] called at 0530. Will be here shortly. Body prepared for removal.
--- NOTE | 2022-06-28 06:50 | PC.NURSE ---
Removal at 0600---Adrien here from [facility] to remove body. Upper denture sent with. No jewelry on body. No other personal belongings sent with.
--- NOTE | 2022-06-28 07:22 | PC.NURSE ---
Discharge summary---during admission here had a steady decline. Put on comfort focused care as of 06/23/22. Was receiving Roxanol and Ativan for comfort. peacefully at 0520 this morning.
== END 2022-06-28 07:26 | disposition expired | DRG 871 ==
PROVIDERS: Family Medicine; Admitting Provider Family Medicine; Family Provider Nurse Practitioner Gerontology; Visit Provider Nurse Practitioner Gerontology
DX: A41.9 Sepsis, unspecified organism (principal); K65.9 Peritonitis, unspecified; J44.9 Chronic obstructive pulmonary disease, unspecified; I10 Essential (primary) hypertension
CPT/HCPCS: 36415; 80048; 81003; 81015; 85025; 87086; 87186; 87635; 97110; 97116; 97162; 97166; 97530; 97535

== ENCOUNTER 2022-06-20 10:57 | Inpatient (IN) | payer OTHER, SELFPAY ==
[2022-06-20] VITALS (10 sets, daily range): BP systolic 126–180; BP diastolic 67–127; PULSE 81–114; RESP 20–32; TEMP 36.2–36.7; O2SAT 85–98; BMI 25.6; BMI 22.3
--- NOTE | 2022-06-20 11:23 | CRLHL7_ITS ---
For Patients: As a result of the Century Cures Act, medical imaging exams and procedure reports are released immediately into your electronic medical record. You may view this report before your referring provider. If you have questions, please contact your health care provider. INDICATION: Cough, shortness of breath TECHNIQUE: Chest 1 view COMPARISON: 01/06/2021 chest x-ray. 05/22/2022 CT. FINDINGS: Right pleural effusion is present with tracking into the minor fissure. Small left pleural effusion. Cardiomegaly. Background COPD/emphysema/pulmonary fibrosis. Increased cephalization of the pulmonary vascularity since the prior study with increased reticulonodular densities bilaterally. No pneumothorax. IMPRESSION: Acute CHF/fluid overload superimposed upon chronic fibrosis/emphysema with bilateral effusions, right greater than left. Dictated by Nikolas Virk MD @ 06/20/2022 12:43:50 PM (Electronically Signed)
--- NOTE | 2022-06-20 11:25 | CRLHL7_ITS ---
For Patients: As a result of the Cures Act, medical imaging exams and procedure reports are released immediately into your electronic medical record. You may view this report before your referring provider. If you have questions, please contact your health care provider. DATE: 06/20/2022. CLINICAL HISTORY: Altered mental status; recent abdominal surgery. TECHNIQUE: Standard helical CT image acquisition of the brain was performed. COMPARISON: None available. FINDINGS: There is no intracranial hemorrhage. No extra-axial collection, mass effect, or midline shift. Patchy hypoattenuation within the white matter of both hemispheres likely reflects sequela of chronic small vessel ischemia. Mild to moderate generalized parenchymal volume loss with resulting prominence of cerebral sulci and the ventricular system. The calvarium is unremarkable. Ocular lens replacements. The paranasal sinuses are unremarkable. The mastoid air cells are unremarkable. The soft tissues are unremarkable. IMPRESSION: 1. No CT evidence of acute intracranial abnormality. 2. Senescent changes including generalized parenchymal volume loss and findings most consistent with sequela of chronic small vessel ischemia. Please note that all CT scans at this facility use dose modulation, iterative reconstruction, and/or weight-based dosing when appropriate to reduce radiation dose to as low as reasonably achievable. Dictated by Kwaku Lin MD @ 06/20/2022 12:34:47 PM (Electronically Signed)
--- NOTE | 2022-06-20 11:25 | CRLHL7_ITS ---
For Patients: As a result of the Century Cures Act, medical imaging exams and procedure reports are released immediately into your electronic medical record. You may view this report before your referring provider. If you have questions, please contact your health care provider. DATE: 06/20/2022. CLINICAL HISTORY: Altered mental status; recent abdominal surgery. TECHNIQUE: Standard helical CT image acquisition through the head and neck was performed after intravenous contrast bolus enhancement. Multiplanar reconstructed images were performed and interpreted. COMPARISON: None available. FINDINGS: The origins of the great vessels from the aortic arch are patent. The origins of the right and left vertebral arteries are patent. The common carotid arteries are patent. Moderate (approximately 50%) atherosclerotic stenoses of the proximal ICAs bilaterally, by NASCET criteria. NASCET criteria. The more distal cervical segments of the internal carotid arteries are patent. The cervical segments of the vertebral arteries are patent. No intracranial proximal large vessel occlusion or flow-limiting luminal stenosis. No evidence of cerebral aneurysm or findings to suggest an arteriovenous shunting lesion. Moderate to large right and small left pleural effusions. Prominence of the interlobular septa which may reflect interstitial edema/fluid overload status. IMPRESSION: 1. No intracranial proximal large vessel occlusion or flow-limiting luminal stenosis. 2. Moderate (approximately 50%) atherosclerotic stenoses of the proximal ICAs bilaterally, by NASCET criteria. 3. Moderate to large right and small left pleural effusions as well as findings suggestive of interstitial edema which is favored to be on the basis of fluid overload status. Please note that all CT scans at this facility use dose modulation, iterative reconstruction, and/or weight-based dosing when appropriate to reduce radiation dose to as low as reasonably achievable. Dictated by Kwaku Lin MD @ 06/20/2022 12:42:52 PM (Electronically Signed)
--- NOTE | 2022-06-20 11:29 | CRLHL7_ITS ---
For Patients: As a result of the Century Cures Act, medical imaging exams and procedure reports are released immediately into your electronic medical record. You may view this report before your referring provider. If you have questions, please contact your health care provider. Indication: AMS, ABD PAIN, RECENT ABD SURGERY Technique: Postcontrast CT abdomen and pelvis. 95 cc Isovue 370 intravenous contrast. Please note that all CT scans at this facility use dose modulation, iterative reconstruction, and/or weight-based dosing when appropriate to reduce radiation dose to as low as reasonably achievable. Comparison: 05/22/2022 Findings: Interval development of subcapsular fluid collections along the right lateral margin of the liver measuring 2.8 cm and 2.7 cm. Bilateral pleural effusions are present with adjacent atelectasis. No pericardial effusion. No intrahepatic mass. Gallbladder is absent. Mild prominence of the biliary tree although somewhat decreased compared to the prior exam. Adrenal glands are normal. No hydronephrosis. Spleen is normal in size. Pancreatic atrophy. 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 Bladder normal. Uterus absent. No pelvic soft tissue mass. Postop changes to the right colon. No free air. Mild residual inflammatory changes within the right lateral abdominal mesenteric fat with resolution of the previously noted extraluminal fluid collection inferior to the liver. Postop changes of L4-5 fusion. No compression fracture. Impression: Interval development of subcapsular fluid collections along the right lateral margin of the liver and bilateral pleural effusions. Clearing of extraluminal fluid collection inferior to the liver with mild residual inflammatory changes in the mesenteric fat. No bowel obstruction or free intraperitoneal air. Please note that all CT scans at this facility use dose modulation, iterative reconstruction, and/or weight-based dosing when appropriate to reduce radiation dose to as low as reasonably achievable. Dictated by Nikolas Virk MD @ 06/20/2022 1:03:25 PM (Electronically Signed)
--- NOTE | 2022-06-20 11:32 | ED.GENADULT ---
HPI - General Adult General Chief complaint: Weakness Stated complaint: weakness/from LTCC Time Seen by Provider: 06/20/22 11:17 History of Present Illness HPI narrative: Khadijah is a 76yo female patient with h/o dementia, epilepsy, COPD, and hypertension with recent diagnosis of ruptured appendicitis and subsequent intra-abdominal abscess that required drainage with Interventional Radiology who presents to the emergency department with acute on chronic worsening mental status. The patient's daughter reports that the patient has had declining health since her hospitalization for her appendicitis and subsequent abscess over the last month, but she states that over the weekend the patient had acute decline. She reports decreased p.o. intake, poor communication, and inability to follow commands. Last known well was 4-5 days prior. She has had no acute trauma or injury. She was previously able to ambulate with minimal assistance and assistive devices including walker. Related Data Home Medications Medication Instructions Recorded Confirmed acetaminophen 500 mg tablet 1,000 mg PO TID PRN pain 05/23/22 06/20/22 albuterol sulfate 90 mcg/actuation 2 puff inhalation Q4H PRN 05/23/22 06/20/22 aerosol inhaler shortness of breath or wheezing atorvastatin 10 mg tablet 10 mg PO HS 05/23/22 06/20/22 cetirizine 10 mg tablet 10 mg PO HS 05/23/22 06/20/22 cholecalciferol (vitamin D3) 50 2,000 unit PO DAILY 05/23/22 06/20/22 mcg (2,000 unit) tablet duloxetine 60 mg capsule,delayed 120 mg PO DAILY 05/23/22 06/20/22 release fluticasone 250 mcg-salmeterol 50 1 inh inhalation BID 05/23/22 06/20/22 mcg/dose blistr powdr for inhalation (Wixela Inhub) fluticasone propionate 50 1 spray intranasal BID 05/23/22 06/20/22 mcg/actuation nasal spray,suspension lisinopril 20 mg tablet 20 mg PO DAILY 05/23/22 06/20/22 mirtazapine 45 mg tablet 45 mg PO HS 05/23/22 06/20/22 multivitamin (Multiple Vitamins 1 tab PO DAILY 05/23/22 06/20/22 tablet) quetiapine 25 mg tablet 25 mg PO TID PRN agitation 05/23/22 06/20/22 tiotropium bromide 18 mcg capsule 1 cap inhalation DAILY 05/23/22 06/20/22 with inhalation device (Spiriva with HandiHaler) apixaban 5 mg tablet (Eliquis) 5 mg PO BID 06/20/22 06/20/22 diclofenac sodium 1 % topical gel 2 g topical TID PRN 06/20/22 06/20/22 furosemide 20 mg tablet 20 mg PO DAILY 06/20/22 06/20/22 lorazepam 0.5 mg tablet 0.5 mg PO DAILY@08 06/20/22 06/20/22 metoprolol tartrate 50 mg tablet 50 mg PO BID 06/20/22 06/20/22 oxycodone 5 mg tablet 2.5 mg PO Q4H PRN 06/20/22 06/20/22 polyethylene glycol 3350 17 17 g PO DAILY 06/20/22 06/20/22 gram/dose oral powder (Gavilax) quetiapine 25 mg tablet 12.5 mg PO DAILY 06/20/22 06/20/22 sennosides 8.6 mg tablet (senna) 8.6 mg PO DAILY 06/20/22 06/20/22 Allergies Allergy/AdvReac Type Severity Reaction Status Date / Time bupropion AdvReac Mild Unknown Verified 06/20/22 14:03 varenicline [From Chantix] AdvReac Mild Anxiety Verified 06/20/22 18:48 Sulfa (Sulfonamide AdvReac Verified 06/20/22 14:03 Antibiotics) Review of Systems Status of ROS: Reports: unobtainable due to medical condition (Asked of patient's daughter, at bedside.) Const: Reports: fatigue, malaise and change in sleep pattern; Denies: fever Cardio: Reports: shortness of breath with exertion and shortness of breath when lying down; Denies: swelling of feet/ankles Resp: Reports: shortness of breath and cough GI: Denies: vomiting or diarrhea : Reports: urinary incontinence (Chronic) Neuro: Reports: confusion, behavioral changes and difficulty communicating thoughts; Denies: seizure-like activity or involuntary movements Endo: Reports: fatigue PFSH PFSH Medical History Anxiety COPD (chronic obstructive pulmonary disease) Dementia Depression Diverticulosis Epilepsy Hyperlipidemia Hypertension Insomnia Lumbar spinal stenosis Obesity Osteoporosis Peripheral vascular disease Pneumonia due to COVID-19 virus Vitamin D deficiency Surgical History H/O: hysterectomy History of cholecystectomy History of colonoscopy Hx of breast biopsy Family History Other Coronary artery disease Cystic fibrosis Diabetes Social History Narrative: She is a resident of dementia unit at [facility]. Her code status is DNR. Formerly a smoker and quit in 2007 after 80 pack years of smoking. She does not drink alcohol. Her daughter Michelle is her life insurance salesperson. Highest level of school completed/degree received: high school graduate Smoking Status: Former smoker Do you use any of these nicotine containing products: None Second hand tobacco smoke exposure: No How often do you have a drink containing alcohol: never How often do you have six or more drinks on one occasion: Never AUDIT-C Alcohol total score: 0 Non-prescribed substance use: denies use Caffeine: Yes (coffee) service: No Exam Const: Vital Signs, click to edit/add: Vital Signs - 24 hr 06/20/22 11:00 06/20/22 12:30 06/20/22 13:00 Temperature 97.5 F L Pulse Rate [Right Pulse Oximeter] 98 103 H 90 Respiratory Rate 32 H 24 22 Blood Pressure [Le ft Forearm] Blood Pressure [Ri ght Forearm] Blood Pressure [Ri ght Upper Arm] 165/88 H 164/82 H Pulse Oximetry 94 87 L 98 Oxygen Delivery Me thod Room Air Nasal Cannula Room Air Oxygen Flow Rate 3 06/20/22 14:53 06/20/22 16:00 06/20/22 17:00 Temperature Pulse Rate [Right Pulse Oximeter] 111 H 114 H 112 H Respiratory Rate 28 H Blood Pressure [Le ft Forearm] 153/87 H Blood Pressure [Ri ght Forearm] 180/127 H Blood Pressure [Ri ght Upper Arm] 161/92 H Pulse Oximetry 85 L 86 L 94 Oxygen Delivery Me thod Room Air Room Air Nasal Cannula Oxygen Flow Rate Common normals: no apparent distress; negative for oriented x3 and negative for healthy appearing Exam limitations: altered mental status and language barrier General appearance: ill appearing chronically; not comfortable and not in distress Orientation/consciousness: Yes confused HENMT: Common normals: normocephalic and head/scalp atraumatic Head and scalp: normocephalic and atraumatic Eye: Common normals: PERRL; EOMs not intact bilaterally Pupil: PERRL; accommodation reflex abnormal EOM: EOM abnormal Neck & C-Spine: Common normals: no lymphadenopathy and supple Resp: Common normals: normal respiratory effort, no use of accessory muscles and clear to auscultation bilaterally Auscultation: clear to auscultation bilaterally Cardio: Common normals: regular rate, regular rhythm, S1 normal heart sound and S2 normal heart sound Rate: regular rate Rhythm: regular rhythm Heart sounds: S1 normal and S2 normal GI: Common normals: soft to palpation Palpation: soft, tender (diffusely, determined by groaning with palpation) and guarding Extremity: Common normals: no clubbing, cyanosis or edema and no pedal edema Other: bilateral LE contracted Neuro: [place] Coma Scale: document GCS findings Moses coma scale eye opening: None (1) (squeezes eyes tight with exam) [place] coma scale verbal response: Sounds (2) [place] coma scale motor response: Localising (5) Moses coma scale total score: 8 Common normals: not oriented x3 Gait (neuro): unable to assess gait Skin: Common normals: no rashes or lesions noted General skin exam: no rashes or lesions noted Course Course Hospital Course: Khadijah's IV and labs were obtained. She was sent for head CT without contrast, which was evaluated and determined to proceed with head CT with contrast. These were performed without incident. The patient returned and remained poorly responsive. Initial labs and imaging were unremarkable for etiology of acute decompensation. MRI was discussed with family and ordered for further evaluation. Reevaluation(s) Reevaluation #1: No significant change in patient's condition. MRI was unable to be performed due to the patient's inability to remain still. She appears to be resting comfortably. Time: 13:35 Reevaluation #2: Discussed consideration of admission with patient's daughter and patient. Mentation has somewhat cleared, and patient is able to follow limited commands. She remains oriented only to person and place. The hospitalist is contacted to consider admission. Time: 17:25 Vital Signs Vital signs: Initial Vital Signs Temperature 97.5 F L 06/20/22 11:00 Temperature Source Temporal Artery Scan 06/20/22 11:00 Pulse Rate 98 06/20/22 11:00 Respiratory Rate 32 H 06/20/22 11:00 Blood Pressure 165/88 H 06/20/22 11:00 Blood Pressure Mean 113 06/20/22 11:00 Blood Pressure Position Sitting 06/20/22 11:00 Pulse Oximetry 94 06/20/22 11:00 Oxygen Delivery Method 06/20/22 11:00 Vital Signs Temperature 97.5 F L 06/20/22 11:00 Pulse Rate 98 06/20/22 11:00 Respiratory Rate 32 H 06/20/22 11:00 Blood Pressure 165/88 H 06/20/22 11:00 Pulse Oximetry 94 06/20/22 11:00 Oxygen Delivery Method 06/20/22 11:00 Temperature 98.1 F 06/20/22 18:32 Pulse Rate 111 H 06/20/22 18:32 Respiratory Rate 22 06/20/22 18:32 Blood Pressure 177/84 H 06/20/22 18:32 Pulse Oximetry 96 06/20/22 18:32 Oxygen Delivery Method 06/20/22 18:32 Oxygen Flow Rate 3 06/20/22 18:32 Medical Decision Making MDM Narrative Medical decision making narrative: Multiple differential diagnoses were considered for altered mental status. The life-threatening differential diagnosis considered include meningitis/encephalitis, bacteremia, subdural hematoma, CVA, SAH, and hypertensive encephalopathy. Other differential diagnoses include medication effect, hypoxia, electrolyte abnormalities, infectious Disease, seizure, as well as other etiologies. Lab Data Lab results reviewed: Yes I reviewed the patient's lab results Labs: Lab Results 06/20/22 06/20/22 06/20/22 Range/Units 11:26 11:30 11:30 WBC 7.37 (4.50-11.00) K/uL RBC 3.27 L (4.00-5.20) m/uL Hgb 9.2 L (12.0-16.0) gm/dL Hct 30.4 L (33.0-51.0) % MCV 93 (80-100) fL MCH 28 (26-34) pg MCHC 30 L (32-36) gm/dL RDW Coeff of Héctor 16.5 H (11.5-15.5) % Plt Count 206 (140-440) K/uL Neut % (Auto) 76.1 H (42.0-72.0) % Lymph % (Auto) 12.6 L (20-44) % [place] % (Auto) 9.2 (0.0-11.0) % Eos % (Auto) 0.3 (0.0-7.0) % Baso % (Auto) 0.9 (0.0-3.0) % Neut # (Auto) 5.60 (1.7-7.0) K/uL Lymph # (Auto) 0.90 (0.90-2.90) K/uL [place] # (Auto) 0.70 (0.00-0.90) K/UL Eos # (Auto) 0.02 (0.00-0.50) K/uL Baso # (Auto) 0.07 (0.00-0.30) K/uL Abs Immat Gran (auto) 0.07 (0.00-0.30) K/uL Sodium 142 (135-149) mmol/L Potassium 3.0 L (3.6-5.1) mmol/L Chloride 100 (96-114) mmol/L Carbon Dioxide 35 H (20-32) mmol/L BUN 15 (7-30) mg/dL Creatinine 0.7 (0.5-1.5) mg/dL Estimated Creat Clear 41.33 Estimated GFR 90 ml/min Glucose 118 H (60-115) mg/dL Plasma Lactic Acid Juan Alberto Lactate (0.5-1.9) mmol/L Calcium 8.6 (8.4-10.6) mg/dL Total Bilirubin 0.4 (0.1-1.5) mg/dL AST 46 H (12-35) U/L ALT 56 H (4-35) U/L Alkaline Phosphatase 212 H (40-150) U/L Troponin I (0.01-0.04) ng/mL NT-Pro-B Natriuret Pep (0-450) PG/mL Total Protein 6.5 (6.0-8.3) g/dL Albumin 3.3 (3.3-5.0) g/dL SARS-CoV-2 (PCR) Negative SARS-CoV-2 (Negative) 08/01/1006/20/22 06/20/22 Range/Units 11:30 11:30 11:30 WBC (4.50-11.00) K/uL RBC (4.00-5.20) m/uL Hgb (12.0-16.0) gm/dL Hct (33.0-51.0) % MCV (80-100) fL MCH (26-34) pg MCHC (32-36) gm/dL RDW Coeff of Héctor (11.5-15.5) % Plt Count (140-440) K/uL Neut % (Auto) (42.0-72.0) % Lymph % (Auto) (20-44) % [place] % (Auto) (0.0-11.0) % Eos % (Auto) (0.0-7.0) % Baso % (Auto) (0.0-3.0) % Neut # (Auto) (1.7-7.0) K/uL Lymph # (Auto) (0.90-2.90) K/uL [place] # (Auto) (0.00-0.90) K/UL Eos # (Auto) (0.00-0.50) K/uL Baso # (Auto) (0.00-0.30) K/uL Abs Immat Gran (auto) (0.00-0.30) K/uL Sodium (135-149) mmol/L Potassium (3.6-5.1) mmol/L Chloride (96-114) mmol/L Carbon Dioxide (20-32) mmol/L BUN (7-30) mg/dL Creatinine (0.5-1.5) mg/dL Estimated Creat Clear Estimated GFR ml/min Glucose (60-115) mg/dL Plasma Lactic Acid Juan Alberto Cancelled Lactate 1.1 (0.5-1.9) mmol/L Calcium (8.4-10.6) mg/dL Total Bilirubin (0.1-1.5) mg/dL AST (12-35) U/L ALT (4-35) U/L Alkaline Phosphatase (40-150) U/L Troponin I (0.01-0.04) ng/mL NT-Pro-B Natriuret Pep 68905 H (0-450) PG/mL Total Protein (6.0-8.3) g/dL Albumin (3.3-5.0) g/dL SARS-CoV-2 (PCR) (Negative) 06/20/22 06/20/22 Range/Units 13:04 15:08 WBC (4.50-11.00) K/uL RBC (4.00-5.20) m/uL Hgb (12.0-16.0) gm/dL Hct (33.0-51.0) % MCV (80-100) fL MCH (26-34) pg MCHC (32-36) gm/dL RDW Coeff of Héctor (11.5-15.5) % Plt Count (140-440) K/uL Neut % (Auto) (42.0-72.0) % Lymph % (Auto) (20-44) % [place] % (Auto) (0.0-11.0) % Eos % (Auto) (0.0-7.0) % Baso % (Auto) (0.0-3.0) % Neut # (Auto) (1.7-7.0) K/uL Lymph # (Auto) (0.90-2.90) K/uL [place] # (Auto) (0.00-0.90) K/UL Eos # (Auto) (0.00-0.50) K/uL Baso # (Auto) (0.00-0.30) K/uL Abs Immat Gran (auto) (0.00-0.30) K/uL Sodium (135-149) mmol/L Potassium (3.6-5.1) mmol/L Chloride (96-114) mmol/L Carbon Dioxide (20-32) mmol/L BUN (7-30) mg/dL Creatinine (0.5-1.5) mg/dL Estimated Creat Clear Estimated GFR ml/min Glucose (60-115) mg/dL Plasma Lactic Acid Juan Alberto Lactate (0.5-1.9) mmol/L Calcium (8.4-10.6) mg/dL Total Bilirubin (0.1-1.5) mg/dL AST (12-35) U/L ALT (4-35) U/L Alkaline Phosphatase (40-150) U/L Troponin I 0.09 H* 0.09 H* (0.01-0.04) ng/mL NT-Pro-B Natriuret Pep (0-450) PG/mL Total Protein (6.0-8.3) g/dL Albumin (3.3-5.0) g/dL SARS-CoV-2 (PCR) (Negative) Imaging Data CT scan - head: Attestation: I have reviewed the pertinent imaging results. Radiologist's impression: IMPRESSION: 1. No intracranial proximal large vessel occlusion or flow-limiting luminal stenosis. 2.? Moderate (approximately 50%) atherosclerotic stenoses of the proximal ICAs bilaterally, by NASCET criteria. 3. Moderate to large right and small left pleural effusions as well as findings suggestive of interstitial edema which is favored to be on the basis of fluid overload status. XR chest: Attestation: I have reviewed the pertinent imaging results. Radiologist's impression: IMPRESSION: Acute CHF/fluid overload superimposed upon chronic fibrosis/emphysema with bilateral effusions, right greater than left. ECG Data Attestation: I personally reviewed and interpreted this ECG as follows: (Normal axis with ST with PACs and significant artifact with wandering baseline. Normal intervals. No previous for comparison.) Discharge Plan Discharge Clinical Impression: Dementia, COPD (chronic obstructive pulmonary disease), Acute alteration in mental status Acute exacerbation of CHF (congestive heart failure) Qualifiers: Heart failure type: unspecified Qualified Code(s): I50.9 - Heart failure, unspecified Patient Disposition: Admitted As Inpatient Condition: Improved Activity Level: Activity as Tolerated Discharge Diet: Regular
[2022-06-20 11:57] LABS: Lactate* 1.1 mmol/L (0.5-1.9)
[2022-06-20 12:10] LABS: Basophils Absolute Auto 0.07 K/uL (0.00-0.30); Basophils Percent Auto 0.9 % (0.0-3.0); Eosinophils Absolute Auto 0.02 K/uL (0.00-0.50); Eosinophils Percent Auto 0.3 % (0.0-7.0); Hematocrit 30.4 % (33.0-51.0); Hemoglobin* 9.2 gm/dL (12.0-16.0); Immature Granulocytes Abs Auto 0.07 K/uL (0.00-0.30); Lymphocytes Percent Auto 12.6 % (20-44); Mean Corpuscular HGB Conc 30 gm/dL (32-36); Mean Corpuscular Hemoglobin 28 pg (26-34); Mean Corpuscular Volume 93 fL (80-100); Monocytes Percent Auto 9.2 % (0.0-11.0); Neutrophils Percent Auto 76.1 % (42.0-72.0); Platelet Count* 206 K/uL (140-440); RDW Coefficient of Variation % 16.5 % (11.5-15.5); Red Blood Count 3.27 m/uL (4.00-5.20); White Blood Count* 7.37 K/uL (4.50-11.00)
[2022-06-20 12:19] LABS: Albumin* 3.3 g/dL (3.3-5.0); Chloride* 100 mmol/L (96-114)
[2022-06-20 12:20] LABS: Sodium* 142 mmol/L (135-149)
[2022-06-20 12:22] LABS: Aspartate Amino Transferase* 46 U/L (12-35); Bilirubin Total* 0.4 mg/dL (0.1-1.5); Blood Urea Nitrogen* 15 mg/dL (7-30); Carbon Dioxide* 35 mmol/L (20-32); Creatinine* 0.7 mg/dL (0.5-1.5); Est. Creatinine Clearance* 41.33; Estimated Glomerular Filt Rate 90 ml/min; Total Protein* 6.5 g/dL (6.0-8.3)
[2022-06-20 12:23] LABS: Alanine Aminotransferase* 56 U/L (4-35); Alkaline Phosphatase* 212 U/L (40-150); Calcium* 8.6 mg/dL (8.4-10.6); Glucose* 118 mg/dL (60-115)
[2022-06-20 12:25] LABS: Slide Review Reflex No
[2022-06-20 12:40] LABS: SARS PCR* Negative SARS-CoV-2 (Negative)
[2022-06-20 13:22] LABS: NT Pro B Type NatriureticPept* 12600 PG/mL (0-450)
[2022-06-20] MEDS: FUROSEMIDE 10 MG/ML inj 40 MG IVP (13:59)
[2022-06-20 14:15] LABS: Troponin I* 0.09 ng/mL (0.01-0.04)
--- NOTE | 2022-06-20 15:29 | ED.NURSE ---
was able to urinate on the commode. did get up with assist of 2 and was able to stand. was incont of urine also after he mri. daughter lashonda at and is very helpful.
[2022-06-20 15:47] LABS: Troponin I* 0.09 ng/mL (0.01-0.04)
--- NOTE | 2022-06-20 17:51 | W.PC.EDHO ---
Primary Language: Preferred Language: Orientation Status: [] Alert & Oriented [] Slight Confusion [] Known Dx Dementia Transfers By: [] Assist of 1 [] Assist of 2 [] Lift Active Medications Discontinued Medications Generic Name Dose Route Start Last Admin Trade Name Freq PRN Reason Stop Dose Admin Furosemide 40 mg 06/20/22 13:36 06/20/22 13:59 Furosemide 10 Mg/Ml Inj IVP 06/20/22 13:37 40 mg ONCE ONE Administration Female History Patient No Moses Coma Scale [place] coma scale total score 8 IV Insertion/Site Date of IV Line Insertion [ 06/20/22 Right Forearm] Oxygen Administration Pulse Oximetry 94 Pulse Oximetry 86 Pulse Oximetry 85 Pulse Oximetry 98 Pulse Oximetry 87 Pulse Oximetry 94 Oxygen Delivery Method Nasal Cannula Oxygen Delivery Method Room Air Oxygen Delivery Method Room Air Oxygen Delivery Method Room Air Oxygen Delivery Method Nasal Cannula Oxygen Delivery Method Room Air Oxygen Flow Rate 3
--- NOTE | 2022-06-20 18:19 | P.IMHP_ITS ---
Hospitalist- H&P: HPI History of Present Illness Time Seen by Provider: 17:30 Date Seen: 06/20/22 Chief complaint: weakness/from LTCC Narrative: Khadijah Quinones is a 76 year old female who was brought to the ER by her daughter today, forward weakness and decreased p.o. intake over the past 4 days. Patient lives at our care center, daughter Michelle provides most of the history given patient's known history of dementia, although Gloria does occasionally answer questions during our interview. Daughter notes that Gloria has been more somnolent over the past 2-3 days. She has not taken in virtually anything p.o. over the last 3 days. She was last known well on Sunday of last week. She has had no fevers, cough, or other signs or symptoms of illness, but daughter does occasionally notice her putting her hand on her chest, and wonders if her mom is occasionally having pain. She notes that Gloria took off her oxygen for an unknown period of time last night (staff at the care center was unsure how long she was without it), and when oxygen was replaced, her O2 sats were in the 60% range. ER course and findings: - elevated troponin of 0.09, same on repeat - BNP 04697 - Hgb 9.2 (was 9.3 at [facility] on 06/10) - Elevated LFTs (stable from elevation noted at [facility] in May) - no acute findings on head CT and head and neck CTA. Noted was atherosclerotic disease of bilateral proximal ICAs - subcapsular fluid collections along right lateral margin of liver (similar to what was noted on imaging at [facility] in May) Gloria was hospitalized in [place] on May 22 for abdominal pain and fever. She was found to have appendicitis with an abscess and transferred to the [facility] for IR drainage. During her stay at [facility], she required surgical intervention (laparoscopic converted to open appendectomy with partial cecectomy on 05/25/2022). Her postoperative course was complicated by AFib with RVR and hypoxia. Her AFib was successfully managed with amiodarone, and she was discharged home on apixaban. TTE at [facility] exhibited moderate to severe with an EF of 70%. Nocturnal oxygen study was performed, noting a 2 liter/minute oxygen requirement while sleeping. She continued 1L/min oxygen per nasal cannula at rest and 3 liters/minute with activity. She was also found to have a rim-enhancing fluid collection about the R hepatic lobe (noted on postoperative imaging 05/31), had a perihepatic drain placed that was removed on 06/12. Past medical history noted below. Patient is , daughter Michelle ([phone]) lives locally and is primary decision maker. Gloria is a former smoker, quit greater than 15 years ago. She is a nonalcohol user. Review of Systems Status of ROS: Reports: unobtainable due to medical condition [facility] Medical History (Updated 06/20/22 @ 20:05 by Shayy Galan MD) Anemia Anxiety Aortic stenosis COPD (chronic obstructive pulmonary disease) Dementia Depression Diverticulosis Epilepsy Hyperlipidemia Hypertension Insomnia Lumbar spinal stenosis Obesity Osteoporosis Peripheral vascular disease Pneumonia due to COVID-19 virus Vitamin D deficiency Surgical History H/O: hysterectomy History of cholecystectomy History of colonoscopy Hx of breast biopsy Family History Other Coronary artery disease Cystic fibrosis Diabetes Social History Narrative: She is a resident of dementia unit at [facility]. Her code status is DNR. Formerly a smoker and quit in 2007 after 80 pack years of smoking. She does not drink alcohol. Her daughter Michelle is her contact agent. Highest level of school completed/degree received: high school graduate Smoking Status: Former smoker Do you use any of these nicotine containing products: None Second hand tobacco smoke exposure: No How often do you have a drink containing alcohol: never How often do you have six or more drinks on one occasion: Never AUDIT-C Alcohol total score: 0 Non-prescribed substance use: denies use Caffeine: Yes (coffee) service: No Meds Home Medications and Allergies Home Medications Medication Instructions Recorded Confirmed Type acetaminophen 500 mg tablet 1,000 mg PO TID PRN pain 05/23/22 06/20/22 History albuterol sulfate 90 mcg/actuation 2 puff inhalation Q4H PRN 05/23/22 06/20/22 History aerosol inhaler shortness of breath or wheezing atorvastatin 10 mg tablet 10 mg PO HS 05/23/22 06/20/22 History cetirizine 10 mg tablet 10 mg PO HS 05/23/22 06/20/22 History cholecalciferol (vitamin D3) 50 2,000 unit PO DAILY 05/23/22 06/20/22 History mcg (2,000 unit) tablet duloxetine 60 mg capsule,delayed 120 mg PO DAILY 05/23/22 06/20/22 History release fluticasone 250 mcg-salmeterol 50 1 inh inhalation BID 05/23/22 06/20/22 History mcg/dose blistr powdr for inhalation (Wixela Inhub) fluticasone propionate 50 1 spray intranasal BID 05/23/22 06/20/22 History mcg/actuation nasal spray,suspension lisinopril 20 mg tablet 20 mg PO DAILY 05/23/22 06/20/22 History mirtazapine 45 mg tablet 45 mg PO HS 05/23/22 06/20/22 History multivitamin (Multiple Vitamins 1 tab PO DAILY 05/23/22 06/20/22 History tablet) quetiapine 25 mg tablet 25 mg PO TID PRN agitation 05/23/22 06/20/22 History tiotropium bromide 18 mcg capsule 1 cap inhalation DAILY 05/23/22 06/20/22 History with inhalation device (Spiriva with HandiHaler) apixaban 5 mg tablet (Eliquis) 5 mg PO BID 06/20/22 06/20/22 History diclofenac sodium 1 % topical gel 2 g topical TID PRN 06/20/22 06/20/22 History furosemide 20 mg tablet 20 mg PO DAILY 06/20/22 06/20/22 History lorazepam 0.5 mg tablet 0.5 mg PO DAILY@08 06/20/22 06/20/22 History metoprolol tartrate 50 mg tablet 50 mg PO BID 06/20/22 06/20/22 History oxycodone 5 mg tablet 2.5 mg PO Q4H PRN 06/20/22 06/20/22 History polyethylene glycol 3350 17 17 g PO DAILY 06/20/22 06/20/22 History gram/dose oral powder (Gavilax) quetiapine 25 mg tablet 12.5 mg PO DAILY 06/20/22 06/20/22 History sennosides 8.6 mg tablet (senna) 8.6 mg PO DAILY 06/20/22 06/20/22 History Home Medication Comments: Has not had any of her home meds in the past 2-3 days. Allergies Allergy/AdvReac Type Severity Reaction Status Date / Time bupropion AdvReac Mild Unknown Verified 06/20/22 14:03 varenicline [From Chantix] AdvReac Mild Anxiety Verified 06/20/22 18:48 Sulfa (Sulfonamide AdvReac Verified 06/20/22 14:03 Antibiotics) Exam Narrative: Exam Narrative: GEN: Laying comfortably in bed, intermittently interactive CV: Irregular heart rate in the 100 range, heart sounds distant, systolic murmur noted R: Lungs decreased throughout without lateralizing findings, no wheezing, fine bibasilar crackles Ext: wwp, no concerning edema of bilateral ankles Skin: No concerning skin lesions or rashes on exposed skin Neuro: Patient is moving all 4 extremities intermittently in bed, she wakes up and answers questions appropriately per baseline during our interview Psych: Appropriate for comorbidities Const: Vital Signs, click to edit/add: Vital Signs - 24 hr 06/20/22 11:00 06/20/22 12:30 06/20/22 13:00 Temperature 97.5 F L Pulse Rate [Right Pulse Oximeter] 98 103 H 90 Respiratory Rate 32 H 24 22 Blood Pressure [Le ft Forearm] Blood Pressure [Ri ght Forearm] Blood Pressure [Ri ght Upper Arm] 165/88 H 164/82 H Pulse Oximetry 94 87 L 98 Oxygen Delivery Me thod Room Air Nasal Cannula Room Air Oxygen Flow Rate 3 06/20/22 14:53 06/20/22 16:00 06/20/22 17:00 Temperature Pulse Rate [Right Pulse Oximeter] 111 H 114 H 112 H Respiratory Rate 28 H Blood Pressure [Le ft Forearm] 153/87 H Blood Pressure [Ri ght Forearm] 180/127 H Blood Pressure [Ri ght Upper Arm] 161/92 H Pulse Oximetry 85 L 86 L 94 Oxygen Delivery Me thod Room Air Room Air Nasal Cannula Oxygen Flow Rate Hospitalist - H&P: Result Labs Labs: Short CBC 06/20/22 Range/Units 11:30 WBC 7.37 (4.50-11.00) K/uL Hgb 9.2 L (12.0-16.0) gm/dL Hct 30.4 L (33.0-51.0) % Plt Count 206 (140-440) K/uL BMP 06/20/22 11:30 Sodium 142 Potassium 3.0 L Chloride 100 Carbon Dioxide 35 H BUN 15 Creatinine 0.7 Glucose 118 H Calcium 8.6 Cardiac Enzymes 06/20/22 06/20/22 Range/Units 13:04 15:08 Troponin I 0.09 H* 0.09 H* (0.01-0.04) ng/mL Liver Function 06/20/22 Range/Units 11:30 Total Bilirubin 0.4 (0.1-1.5) mg/dL AST 46 H (12-35) U/L ALT 56 H (4-35) U/L Alkaline Phosphatase 212 H (40-150) U/L Albumin 3.3 (3.3-5.0) g/dL Assessment and Plan Assessment and plan (1) Elevated troponin: Status: Acute (2) Pleural effusion: Status: Acute (3) Acute alteration in mental status: Status: Acute (4) Hypokalemia: Status: Acute (5) Dementia: Problem comment: Chronic, lives in assisted living center with support Status: Acute (6) Anxiety: Status: Acute (7) Elevated LFTs: Status: Acute (8) Aortic stenosis: Status: Acute (9) COPD (chronic obstructive pulmonary disease): Status: Acute (10) Anemia: Status: Acute Plan 76-year-old female with known dementia, admitted for acute change in mental status in addition to elevated troponin: 1. Elevated troponin and change in status is concerning for recent NSTEMI verses demand ischemia (had self discontinued oxygen overnight recently, possible CHF exacerbation, known aortic stenosis). Of note, troponin was mildly elevated during stay at [facility] as well, so acuity of this abnormality is unclear. Follow troponins. Repeat echocardiogram to help better provide clinical picture and decision making regarding management. Daughter understands that her mother is not a candidate for surgical intervention. 2. FEN: Patient has not been tolerating p.o. over the past few days. She appears both fluid overloaded and intravascularly dry. We will provide gentle IV fluid rehydration with potassium supplementation, continue Lasix. Continue to reassess fluid balance closely. Speech therapy consult ordered. 3. Elevated LFTs are stable from [facility]. Her hepatic fluid collection had improved at [facility] after percutaneous drain placement, now appears to have recurred. Continue to follow LFTs, not an appropriate candidate for aggressive intervention. 4. Dementia with recent change in status. Unable to perform MRI in the ED 2/2 movement. Michelle understands this may be a status change for her mother, and is amenable to discussing options for hospice, if appropriate. Social work consult has been placed. 5. COPD, oxygen dependent: Does not appear to be having an acute exacerbation at this time. She is on her baseline home O2. 6. Anemia has been present since surgical intervention at [facility], related to recent surgical blood loss. 7. Prophylaxis: Continue home dosing of apixaban. 8. Patient is DNR/DNI, daughter considering hospice pending clinical course over the next 24 hours.
--- NOTE | 2022-06-20 19:01 | PC.NURSE ---
Shift [id number]- Patient arrives to floor at approximately 1815. She is up with assist of 2, gait belt and walker. She has difficulty following some directions. Daughter at bedside and supportive. Daughter assists with admission intake. Patient with history of dementia. She arrives on 3L O2 and is weaned to 2L O2 with saturations >90%.
[2022-06-20] MEDS: MORPHINE 4 MG/ML INJ 2 MG IVP (20:22)
[2022-06-20 21:19] LABS: Troponin I* 0.09 ng/mL (0.01-0.04)
[2022-06-20] MEDS: MIRTAZAPINE 15 MG TABLET 45 MG PO (21:19)
[2022-06-20] MEDS: APIXABAN 5 MG TABLET PO (21:19)
[2022-06-20] MEDS: METOPROLOL TARTRATE 50 MG TABLET PO (21:19)
[2022-06-20] MEDS: 0.9 % SODIUM CH + KCL 20 mEq/L 1,000 ML 75 ML IV (21:22)
[2022-06-20] MEDS: FLUTICASONE PROPION SALMETEROL 1 EACH IH (21:38)
[2022-06-20] MEDS: FLUTICASONE PROPIONATE NASAL 1 SPRAY NOSTRIL-B (21:41)
[2022-06-21] VITALS (10 sets, daily range): BP systolic 130–177; BP diastolic 67–94; PULSE 72–100; RESP 20–24; TEMP 36.1–36.6; O2SAT 90–93
--- NOTE | 2022-06-21 02:40 | PC.NURSE ---
Addendum entered by Samantha Mary RN 06/21/22 07:05: When pt. removes nasal camacho. she dsats to low 70's. Takes 3-5 mins. to get back up to 90's. Original Note: Pt. is pleasant and cooperative. Pt. denies any pain, is up with assist of 2, gait belt and walker.? She has difficulty following some directions.?Pt. has history of dementia.?Pt. on 3L O2 with saturations >90%. Repositioned Q2 Hrs and tolerated well.
--- NOTE | 2022-06-21 08:57 | REH.PT ---
Cancel OT/PT today per MD request. Eval tomorrow.
[2022-06-21] MEDS: FLUTICASONE PROPIONATE NASAL 1 SPRAY NOSTRIL-B ×2 (09:25→20:13)
[2022-06-21] MEDS: SENNOSIDES 1 TAB TABLET PO (09:27)
[2022-06-21] MEDS: APIXABAN 5 MG TABLET PO ×2 (09:27→20:13)
[2022-06-21] MEDS: FUROSEMIDE 10 MG/ML inj 40 MG IVP (09:28)
[2022-06-21] MEDS: QUETIAPINE 25 MG TABLET 12.5 MG PO (09:28)
[2022-06-21] MEDS: METOPROLOL TARTRATE 50 MG TABLET PO ×2 (09:28→20:12)
[2022-06-21] MEDS: lisinopriL 20 MG TABLET PO (09:28)
[2022-06-21] MEDS: DULOXETINE 30 MG CAPSULE DR 120 MG PO (09:29)
[2022-06-21] MEDS: FLUTICASONE PROPION SALMETEROL 1 EACH IH ×2 (09:31→20:14)
[2022-06-21 11:07] LABS: HCO3 VBG 39 mmol/L (21-28); PCO2 VBG 50 mmHG (40-50); PO2 VBG 23.8 mmHG (25-47); pH VBG 7.504 (7.32-7.43)
--- NOTE | 2022-06-21 11:10 | PM.IMPN1 ---
Progress Note: A&P Assessment and plan (1) Acute exacerbation of CHF (congestive heart failure): Status: Acute Assessment and Plan: Patient appears to be in congestive heart failure on her chest x-ray with pulmonary edema and pleural fluid. The remainder of her exam appears dry with dry mucous membranes and no peripheral edema. Will continue diuresis cautiously to see if her respiratory status can be improved. Saline lock IV. (2) Heart failure with preserved ejection fraction: Status: Acute (3) Aortic stenosis: Status: Acute (4) Acute alteration in mental status: Status: Acute Assessment and Plan: I think this is improved today. She has had a significant decline overall in the past month however (5) Pleural effusion: Status: Acute Assessment and Plan: Related to heart failure and possibly related to the perihepatic fluid collection (6) Abdominal pain: Status: Acute Assessment and Plan: Probably subacute or chronic pain following surgery last month (7) Hypoxia: Status: Acute Assessment and Plan: Due to combination of heart failure and COPD. (8) Dementia: Problem details: Chronic, lives in assisted living center with support Status: Acute Assessment and Plan: No significant behavioral problems. Will need to rely on daughter for decision making. (9) COPD (chronic obstructive pulmonary disease): Status: Acute Assessment and Plan: Chronic and stable. (10) Hypokalemia: Status: Acute Assessment and Plan: Ongoing replacement (11) Elevated LFTs: Status: Acute Assessment and Plan: Ongoing monitoring (12) Elevated troponin: Status: Acute Assessment and Plan: Chronic and stable (13) Anemia: Status: Acute Assessment and Plan: Postoperative problem, follow. (14) End of life care: Status: Acute Assessment and Plan: I spoke with her daughter Michelle. We discussed the fairly severe illness that she has had over the last month and the complications that have ensued. Patient is not recovering well from this. If anything she is slowly getting worse. She is having worsening of her appetite and her nutrition, worsening of her breathing, decline in her mental status. We discussed a plan forward. At this point will try to diurese some of the fluid from her lungs to help her breathing. It is not clear that this is going to help her appetite or her mental status however. If she does not have some improvement in her overall status in the next day or 2 the daughter is considering hospice. Plan Will continue to discuss with patient and her daughter goals of care and plan of care to manage what appeared to be fairly challenging chronic medical problems including dementia, heart failure, COPD, hypoxia, abdominal pain, loss of appetite, overall frailty. Time Spent With Patient Total time spent: Total time spent today is 50 minutes, 30 minutes in coordination of care and discussing with daughter and other providers management of heart failure, loss of appetite, altered mental status, end of life cares Subjective Date Seen: 06/21/22 Interval history: 76-year-old female seen in followup of hospitalization for altered mental status and dyspnea. Patient has dementia and is disoriented to her circumstances and unable to give significant recent history. She tells me today she is feeling short of breath. She also reports that she is having some mid abdominal pain. She reports no appetite today. She has no chest pain. She is not aware of fever. 1 month ago was hospitalized for ruptured appendicitis. She was [facility]. She underwent surgery for her appendix and cecetomy. She had a prolonged hospital stay. She was discharged last week to [facility]. During hospital stay she had complications of atrial fibrillation. She was treated with amiodarone and started on anticoagulation. She was also found to have a need for chronic oxygen and has been on chronic oxygen since discharge. She had some fluid collection around her liver which remains persistent. CT scan of her abdomen pelvis last night showed fluid around her liver as well as a loculated pleural fluid and evidence of congestive heart failure. She had an echocardiogram at [facility] which showed moderate to severe aortic stenosis and preserved ejection fraction of 70%. She is now in sinus rhythm. Exam Narrative: Exam Narrative: She is alert. She is not oriented to her circumstances, time or location. Speech is fluent. Head is without trauma. Eyes are normal. Extraocular movements are full. Visual almonte are intact. Oropharynx with dry mucous membranes. Neck is supple without mass or adenopathy. Respirations are diminished on the right, especially the right base where she has a moderate pleural effusion. Minimal crackles are present. Cardiovascular: S1, S2, regular rate and rhythm. 2/6 systolic murmur. No gallop or rub. Abdomen: Bowel sounds are active. Abdomen is soft. she has mild diffuse tenderness and guarding. No peritonitis. Const: Vital Signs, click to edit/add: Vital Signs - 24 hr 06/20/22 12:30 06/20/22 13:00 06/20/22 14:53 Temperature Pulse Rate Pulse Rate [Left P ulse Oximeter] Pulse Rate [Right Pulse Oximeter] 103 H 90 111 H Respiratory Rate 24 22 Blood Pressure [Le ft Forearm] Blood Pressure [Ri ght Arm] Blood Pressure [Ri ght Forearm] Blood Pressure [Ri ght Upper Arm] 164/82 H 161/92 H Pulse Oximetry 87 L 98 85 L Oxygen Delivery Me thod Nasal Cannula Room Air Room Air Oxygen Flow Rate 3 06/20/22 16:00 06/20/22 17:00 06/20/22 18:32 Temperature 98.1 F Pulse Rate Pulse Rate [Left P ulse Oximeter] 111 H Pulse Rate [Right Pulse Oximeter] 114 H 112 H Respiratory Rate 28 H 22 Blood Pressure [Le ft Forearm] 153/87 H Blood Pressure [Ri ght Arm] 177/84 H Blood Pressure [Ri ght Forearm] 180/127 H Blood Pressure [Ri ght Upper Arm] Pulse Oximetry 86 L 94 96 Oxygen Delivery Me thod Room Air Nasal Cannula Nasal Cannula Oxygen Flow Rate 3 06/20/22 18:50 06/20/22 19:00 06/20/22 23:00 Temperature 98.0 F Pulse Rate 81 Pulse Rate [Left P ulse Oximeter] 100 Pulse Rate [Right Pulse Oximeter] Respiratory Rate 22 22 Blood Pressure [Le ft Forearm] Blood Pressure [Ri ght Arm] 173/77 H Blood Pressure [Ri ght Forearm] Blood Pressure [Ri ght Upper Arm] Pulse Oximetry 96 92 Oxygen Delivery Me thod Nasal Cannula Nasal Cannula Oxygen Flow Rate 3 3 06/20/22 23:00 06/20/22 23:00 06/21/22 01:04 Temperature 97.2 F L Pulse Rate 89 Pulse Rate [Left P ulse Oximeter] 84 84 Pulse Rate [Right Pulse Oximeter] Respiratory Rate 20 20 Blood Pressure [Le ft Forearm] Blood Pressure [Ri ght Arm] 126/67 Blood Pressure [Ri ght Forearm] Blood Pressure [Ri ght Upper Arm] Pulse Oximetry 94 Oxygen Delivery Me thod Nasal Cannula Oxygen Flow Rate 3 06/21/22 02:07 06/21/22 08:19 06/21/22 08:21 Temperature 97.9 F 97.6 F Pulse Rate Pulse Rate [Left P ulse Oximeter] 93 100 100 Pulse Rate [Right Pulse Oximeter] Respiratory Rate 20 20 22 Blood Pressure [Le ft Forearm] Blood Pressure [Ri ght Arm] 177/85 H 173/84 H Blood Pressure [Ri ght Forearm] Blood Pressure [Ri ght Upper Arm] Pulse Oximetry 93 90 Oxygen Delivery Me thod Nasal Cannula Nasal Cannula Oxygen Flow Rate 3 3 06/21/22 08:26 Temperature Pulse Rate 89 Pulse Rate [Left P ulse Oximeter] Pulse Rate [Right Pulse Oximeter] Respiratory Rate Blood Pressure [Le ft Forearm] Blood Pressure [Ri ght Arm] Blood Pressure [Ri ght Forearm] Blood Pressure [Ri ght Upper Arm] Pulse Oximetry Oxygen Delivery Me thod Oxygen Flow Rate Documenting provider has reviewed patient's vital signs: yes Labs Labs: Laboratory Results - last 24 hr 06/20/22 06/20/22 06/20/22 11:26 11:30 11:30 WBC 7.37 RBC 3.27 L Hgb 9.2 L Hct 30.4 L MCV 93 MCH 28 MCHC 30 L RDW Coeff of Héctor 16.5 H Plt Count 206 Neut % (Auto) 76.1 H Lymph % (Auto) 12.6 L [place] % (Auto) 9.2 Eos % (Auto) 0.3 Baso % (Auto) 0.9 Neut # (Auto) 5.60 Lymph # (Auto) 0.90 [place] # (Auto) 0.70 Eos # (Auto) 0.02 Baso # (Auto) 0.07 Abs Immat Gran (auto) 0.07 VBG pH VBG pCO2 VBG pO2 VBG HCO3 Sodium 142 Potassium 3.0 L Chloride 100 Carbon Dioxide 35 H BUN 15 Creatinine 0.7 Estimated Creat Clear 41.33 Estimated GFR 90 Glucose 118 H Plasma Lactic Acid Juan Alberto Lactate Calcium 8.6 Total Bilirubin 0.4 AST 46 H ALT 56 H Alkaline Phosphatase 212 H Troponin I NT-Pro-B Natriuret Pep Total Protein 6.5 Albumin 3.3 SARS-CoV-2 (PCR) Negative SARS-CoV-2 06/20/22 06/20/22 06/20/22 11:30 11:30 11:30 WBC RBC Hgb Hct MCV MCH MCHC RDW Coeff of Héctor Plt Count Neut % (Auto) Lymph % (Auto) [place] % (Auto) Eos % (Auto) Baso % (Auto) Neut # (Auto) Lymph # (Auto) [place] # (Auto) Eos # (Auto) Baso # (Auto) Abs Immat Gran (auto) VBG pH VBG pCO2 VBG pO2 VBG HCO3 Sodium Potassium Chloride Carbon Dioxide BUN Creatinine Estimated Creat Clear Estimated GFR Glucose Plasma Lactic Acid Juan Alberto Cancelled Lactate 1.1 Calcium Total Bilirubin AST ALT Alkaline Phosphatase Troponin I NT-Pro-B Natriuret Pep 75592 H Total Protein Albumin SARS-CoV-2 (PCR) 06/20/22 06/20/22 06/20/22 13:04 15:08 20:33 WBC RBC Hgb Hct MCV MCH MCHC RDW Coeff of Héctor Plt Count Neut % (Auto) Lymph % (Auto) [place] % (Auto) Eos % (Auto) Baso % (Auto) Neut # (Auto) Lymph # (Auto) [place] # (Auto) Eos # (Auto) Baso # (Auto) Abs Immat Gran (auto) VBG pH VBG pCO2 VBG pO2 VBG HCO3 Sodium Potassium Chloride Carbon Dioxide BUN Creatinine Estimated Creat Clear Estimated GFR Glucose Plasma Lactic Acid Juan Alberto Lactate Calcium Total Bilirubin AST ALT Alkaline Phosphatase Troponin I 0.09 H* 0.09 H* 0.09 H* NT-Pro-B Natriuret Pep Total Protein Albumin SARS-CoV-2 (PCR) 06/21/22 11:03 WBC RBC Hgb Hct MCV MCH MCHC RDW Coeff of Héctor Plt Count Neut % (Auto) Lymph % (Auto) [place] % (Auto) Eos % (Auto) Baso % (Auto) Neut # (Auto) Lymph # (Auto) [place] # (Auto) Eos # (Auto) Baso # (Auto) Abs Immat Gran (auto) VBG pH 7.504 H VBG pCO2 50 VBG pO2 23.8 L VBG HCO3 39 H Sodium Potassium Chloride Carbon Dioxide BUN Creatinine Estimated Creat Clear Estimated GFR Glucose Plasma Lactic Acid Juan Alberto Lactate Calcium Total Bilirubin AST ALT Alkaline Phosphatase Troponin I NT-Pro-B Natriuret Pep Total Protein Albumin SARS-CoV-2 (PCR)
[2022-06-21 11:11] LABS: Basophils Absolute Auto 0.26 K/uL (0.00-0.30); Basophils Percent Auto 2.8 % (0.0-3.0); Eosinophils Absolute Auto 0.05 K/uL (0.00-0.50); Eosinophils Percent Auto 0.5 % (0.0-7.0); Hemoglobin* 9.8 gm/dL (12.0-16.0); Immature Granulocytes Abs Auto 0.05 K/uL (0.00-0.30); Lymphocytes Percent Auto 7.6 % (20-44); Mean Corpuscular HGB Conc 30 gm/dL (32-36); Mean Corpuscular Hemoglobin 28 pg (26-34); Mean Corpuscular Volume 94 fL (80-100); Monocytes Percent Auto 7.1 % (0.0-11.0); Neutrophils Percent Auto 81.5 % (42.0-72.0); Platelet Count* 345 K/uL (140-440); RDW Coefficient of Variation % 16.7 % (11.5-15.5); Red Blood Count 3.52 m/uL (4.00-5.20); White Blood Count* 9.36 K/uL (4.50-11.00)
[2022-06-21 11:23] LABS: Albumin* 3.3 g/dL (3.3-5.0); Chloride* 99 mmol/L (96-114); Sodium* 143 mmol/L (135-149)
[2022-06-21 11:24] LABS: Potassium* 3.2 mmol/L (3.6-5.1)
[2022-06-21 11:26] LABS: Alanine Aminotransferase* 60 U/L (4-35); Alkaline Phosphatase* 205 U/L (40-150); Aspartate Amino Transferase* 68 U/L (12-35); Bilirubin Total* 0.5 mg/dL (0.1-1.5); Blood Urea Nitrogen* 12 mg/dL (7-30); Carbon Dioxide* 37 mmol/L (20-32); Creatinine* 0.6 mg/dL (0.5-1.5); Est. Creatinine Clearance* 41.33; Estimated Glomerular Filt Rate 93 ml/min; Glucose* 140 mg/dL (60-115); Total Protein* 6.6 g/dL (6.0-8.3)
[2022-06-21 11:27] LABS: Calcium* 8.1 mg/dL (8.4-10.6)
[2022-06-21 11:35] LABS: NT Pro B Type NatriureticPept* 7800 PG/mL (0-450)
[2022-06-21 11:47] LABS: Slide Review Reflex No
[2022-06-21 12:00] LABS: Troponin I* 0.08 ng/mL (0.01-0.04)
[2022-06-21] MEDS: POTASSIUM CHLORIDE 10 MEQ CAPSULE ER 40 MEQ PO (12:20)
--- NOTE | 2022-06-21 14:09 | PC.NURSE ---
Addendum entered by Jesus Manuel Morgan RN 06/21/22 18:40: Echo done this evening. Pt did not order any meal tray's today - no appetite. Pt has refused supplements throughout day however did finally agree to have a ensure milkshake for dinner. Pt tolerating pills whole. ST eval done today and recommended thin liquids are ok and soft foods due to patient not having her teeth with her. 2 BMs today. K+ replaced orally. Original Note: Patient Ax0 x2. Unsure of where she is at. Pleasant with cares and cooperative. At times pt will pull off 02 per NC and desat to low 70%'s. Once cannula placed back to nose, sats will gradually rise back to 90-93% on 3L. Pt Ax1-2 to [facility]. Ambulated with Ax1 around bedside and to recliner, pt did require recliner to be moved a bit closer due to fatigue. Lasix given this AM and to be given again this evening d/t fluid buildup to lungs. Plan to try to diurese patient and assess status after another day or two as to d/c disposition. Dtr Michelle updated by Dr. Sales today. Machine Setup Operator did also leave in the event she had questions for the nurse. Bilateral crackles and wheezes noted upon nursing assessment. Pt had incontinent BM around noon, otherwise continent of urine. Will continue to monitor.
[2022-06-21] MEDS: FUROSEMIDE 10 MG/ML inj 20 MG IVP (16:37)
[2022-06-21] MEDS: MIRTAZAPINE 15 MG TABLET 30 MG PO (20:12)
[2022-06-21] MEDS: POTASSIUM CHLORIDE 10 MEQ CAPSULE ER PO (20:12)
[2022-06-22 03:36] VITALS: BP 175/92; PULSE 76; RESP 20; TEMP 36.7; O2SAT 90
--- NOTE | 2022-06-22 05:58 | PC.NURSE ---
shift note : Pt disoriented, reoriented pt as needed. Pt concerned about being late to school and asking where her mother is. Pt with frequent loose stools in the evening, none overnight, unable to collect c-diff sample. Pt requiring a 2 assist pivot to BSC. Denies pain.
[2022-06-22 07:00] VITALS: BP 166/84; PULSE 90; PULSE 92; RESP 24; TEMP 36.5; O2SAT 88
[2022-06-22 07:02] LABS: Basophils Absolute Auto 0.06 K/uL (0.00-0.30); Basophils Percent Auto 0.7 % (0.0-3.0); Eosinophils Absolute Auto 0.09 K/uL (0.00-0.50); Eosinophils Percent Auto 1.1 % (0.0-7.0); Hematocrit 33.6 % (33.0-51.0); Hemoglobin* 10.1 gm/dL (12.0-16.0); Immature Granulocytes Abs Auto 0.06 K/uL (0.00-0.30); Mean Corpuscular HGB Conc 30 gm/dL (32-36); Mean Corpuscular Hemoglobin 28 pg (26-34); Mean Corpuscular Volume 92 fL (80-100); Neutrophils Percent Auto 77.5 % (42.0-72.0); Platelet Count* 152 K/uL (140-440); RDW Coefficient of Variation % 16.7 % (11.5-15.5); Red Blood Count 3.65 m/uL (4.00-5.20); White Blood Count* 8.43 K/uL (4.50-11.00)
[2022-06-22 07:21] LABS: Slide Review Reflex No
[2022-06-22 07:34] LABS: Albumin* 3.3 g/dL (3.3-5.0); Chloride* 97 mmol/L (96-114)
[2022-06-22 07:35] LABS: Sodium* 142 mmol/L (135-149)
[2022-06-22 07:37] LABS: Aspartate Amino Transferase* 50 U/L (12-35); Bilirubin Direct* 0.3 mg/dL (0.0-0.5); Bilirubin Total* 0.5 mg/dL (0.1-1.5); Carbon Dioxide* 37 mmol/L (20-32); Creatinine* 0.6 mg/dL (0.5-1.5); Est. Creatinine Clearance* 41.33; Estimated Glomerular Filt Rate 93 ml/min; Total Protein* 6.6 g/dL (6.0-8.3)
[2022-06-22 07:38] LABS: Alanine Aminotransferase* 54 U/L (4-35); Alkaline Phosphatase* 207 U/L (40-150); Blood Urea Nitrogen* 12 mg/dL (7-30); Calcium* 8.2 mg/dL (8.4-10.6); Glucose* 169 mg/dL (60-115)
[2022-06-22] MEDS: POTASSIUM CHLORIDE 10 MEQ CAPSULE ER PO (07:52)
[2022-06-22 07:57] LABS: Potassium* 2.9 mmol/L (3.6-5.1)
[2022-06-22] MEDS: FUROSEMIDE 10 MG/ML inj 20 MG IVP (08:54)
[2022-06-22] MEDS: APIXABAN 5 MG TABLET PO (08:55)
[2022-06-22] MEDS: METOPROLOL TARTRATE 50 MG TABLET PO (08:55)
[2022-06-22] MEDS: QUETIAPINE 25 MG TABLET 12.5 MG PO (08:55)
[2022-06-22] MEDS: POTASSIUM CHLORIDE 10 MEQ CAPSULE ER 40 MEQ PO (08:55)
[2022-06-22] MEDS: lisinopriL 20 MG TABLET PO (08:55)
[2022-06-22] MEDS: DULOXETINE 30 MG CAPSULE DR 120 MG PO (08:56)
[2022-06-22] MEDS: FLUTICASONE PROPIONATE NASAL 1 SPRAY NOSTRIL-B (09:50)
[2022-06-22] MEDS: FLUTICASONE PROPION SALMETEROL 1 EACH IH (09:50)
[2022-06-22] MEDS: LORazepam 0.5 MG TABLET PO (09:51)
--- NOTE | 2022-06-22 09:56 | PM.DS1 ---
DS: Providers Provider Date Seen: 06/22/22 Date of admission: 06/20/22 18:00 Primary care physician: Hilaria Alcantara DNP, RN Admitting Clinician: Shayy Galan MD Consults: 06/20/22 18:50 Consult to Physical Therapy [CONS] Routine Comment: Reason(s) for PT Consult:: Evaluate and Treat Any Restrictions?:: Wt Bearing as Tolerated Consult to Chief Engineer'S Helper [CONS] Routine Comment: Reason for Consult:: Discharge Planning Needs 06/20/22 18:54 Consult to Occupational Therapy [CONS] Routine Comment: Reason(s) for OT Consult:: Evaluate and Treat Any Restrictions?:: Wt Bearing as Tolerated 06/20/22 20:09 Consult to Speech Therapy [CONS] Routine Comment: Reason(s) for Speech Consult:: Speech/Swallowing Eval Comment: decreased po intake at [facility] - history of dementia Date of Discharge: 06/22/22 DS: Diagnosis Discharge Diagnosis (1) Acute exacerbation of CHF (congestive heart failure): Status: Acute Problem details: Had pulmonary edema on admission. Pleural effusion may be from heart failure and or related to fluid collection around the liver. Apparently seen after surgery at [facility] and managed with percutaneous drainage. Plan here was to treat pulmonary edema with IV diuretics without on going intervention to remove fluid percutaneously. (2) Malnutrition following gastrointestinal surgery: Status: Acute Problem details: Patient has had minimal p.o. intake since discharge from [facility] 1 week ago. She continues report no appetite. (3) End of life care: Status: Acute Problem details: Discussion with patient as well as daughter has led to the conclusion that aggressive interventions to prolong life are not warranted. This includes artificial food and fluid, resuscitation, intubation. Patient will be offered food and fluid and medications but if she refuses then no attempt will be made at tube feedings (4) Hypoxia: Status: Acute Problem details: Ongoing need for oxygen likely due to her combination of heart failure and COPD (5) Heart failure with preserved ejection fraction: Status: Acute Problem details: Stable. Not reliably taking medications for management. (6) Abdominal pain: Status: Acute Problem details: Patient reports no abdominal pain but does have mild diffuse abdominal pain and tenderness which is probably related to her surgery (7) Anemia: Status: Acute Problem details: Probably related to surgery but also due to other issues including poor nutrition (8) Aortic stenosis: Status: Acute Problem details: Not a candidate for intervention (9) Pleural effusion: Status: Acute Problem details: Related to heart failure and possibly fluid collection around her liver from recent hospitalization and surgery at [facility] (10) Elevated troponin: Status: Acute Problem details: Stable. No chest pain. Recommend nitroglycerin or opioid medication if patient develops chest pain (11) Elevated LFTs: Status: Acute Problem details: Related to fluid collection around liver and surgery. No further evaluation or treatment is planned (12) Hypokalemia: Status: Acute Problem details: Diuresis here has led to low potassium. Patient is having some difficulty taking potassium supplementations (13) Acute alteration in mental status: Status: Acute Problem details: Altered mental status has modestly improved. She was relatively sedated. I have somewhat decreased her medications for her mental health problems to reduce sedation and possibly improve appetite and alertness (14) Intra-abdominal abscess: Status: Acute Problem details: CT Abd/Pelvis 05/22/22: 3.8 x 2.2 x 7.5 abscess posterior to cecum and ascending colon status post surgery at [facility]. No evidence of ongoing abscess (15) Dementia: Status: Acute Problem details: Patient is generally not oriented to her circumstances and does not appear to comprehend the complexity of her medical problems and the decision making around these. Daughter has been helpful in making decisions on behalf of her mother (16) Anxiety: Status: Acute Problem details: Minimally a problem during this hospital stay (17) Depression: Status: Acute (18) COPD (chronic obstructive pulmonary disease): Status: Acute Problem details: No exacerbation during this hospital stay DS: Summary Hospital Course Hospital Course: Patient admitted with altered mental status, hypoxia, poor oral intake since discharge from [facility] last week. During her hospital stay she was given IV fluids for concern about dehydration then given IV furosemide because of concern about heart failure. She did diurese some fluid. She still was requiring some oxygen. Intermittently she is removing her oxygen and refusing to keep it on. Intermittently she was refusing medications. Persistently she is refusing food. Discussion with with patient and patient's daughter led to the conclusion that artificial means of providing medications and food and hydration are not a desirable long-term plan. On that basis she will be discharged on her same medications but with an understanding that if she is refusing to eat and drink and take medications that no attempt will be made to artificially provide food and nutrition and medications. I expect she will continue to decline in her mental status and her weakness will progress. Currently will continue her current medications with some modest changes. It would be reasonable over the next few days to transition her to only comfort medications if she has continued to refuse food and medications. Uncertain what to do about her heart failure medicines as managing her volume status when she is not eating or drinking yet still needing some diuresis will be difficult. Managing her electrolytes will be difficult in light of uncertain ability to give her potassium supplementation. Status at Discharge Overall status at discharge: other (Gradual decline in status with patient being almost entirely bed-bound, almost entirely not eating and drinking, and sleeping most of the day.) Time Spent with Patient Time attestation: Total time spent providing and/or coordinating discharge services: 40 minutes Exam Narrative: Exam Narrative: She is alert lying in bed and appears in no distress. She has no complaints for me today. She is not oriented to her circumstances. She does not appear to be anxious or agitated. She is able to carry on a reasonable conversation. She tells me she has no appetite. I explained to her that she must eat to Live. She then agrees to this. Then I asked her if she is going to eat and she says no. Respirations are diminished at the right lung base posteriorly where she has her pleural effusion. Lung sounds are otherwise relatively clear. No marked wheezing. Breathing is unlabored. Cardiovascular: S1, S2, 2/6 systolic ejection murmur. No gallop or rub. Regular rate and rhythm Abdomen is soft with minimal tenderness and no mass. Extremities without edema. Const: Vital Signs, click to edit/add: Vital Signs - 24 hr 06/21/22 12:37 06/21/22 15:00 06/21/22 15:00 Temperature 97.3 F L Pulse Rate 77 Pulse Rate [Left P ulse Oximeter] 72 72 Respiratory Rate 22 22 Blood Pressure [Ri ght Arm] 130/68 Pulse Oximetry 90 Oxygen Delivery Me thod Nasal Cannula Oxygen Flow Rate 3 06/21/22 15:00 06/21/22 20:00 06/21/22 23:33 Temperature 97.0 F L 97.5 F L Pulse Rate 73 Pulse Rate [Left P ulse Oximeter] 72 88 Respiratory Rate 22 24 Blood Pressure [Ri ght Arm] 166/67 H 139/94 H Pulse Oximetry 93 90 Oxygen Delivery Me thod Nasal Cannula Nasal Cannula Oxygen Flow Rate 3 3 06/21/22 23:33 06/21/22 23:00 06/22/22 03:36 Temperature 97.5 F L 98.1 F Pulse Rate Pulse Rate [Left P ulse Oximeter] 73 76 76 Respiratory Rate 22 22 20 Blood Pressure [Ri ght Arm] 141/72 H 175/92 H Pulse Oximetry 91 90 Oxygen Delivery Me thod Nasal Cannula Nasal Cannula Oxygen Flow Rate 3 3 06/22/22 07:00 06/22/22 07:00 Temperature 97.7 F Pulse Rate 92 Pulse Rate [Left P ulse Oximeter] 90 Respiratory Rate 24 Blood Pressure [Ri ght Arm] 166/84 H Pulse Oximetry 88 Oxygen Delivery Me thod Nasal Cannula Oxygen Flow Rate 3 Documenting provider has reviewed patient's vital signs: yes DS: Data Data Completed and Pending Labs on day of discharge: Labs from last 24 hours 06/22/22 06/22/22 06/21/22 06:16 06:16 11:03 WBC 8.43 RBC 3.65 L Hgb 10.1 L Hct 33.6 MCV 92 MCH 28 MCHC 30 L RDW Coeff of Héctor 16.7 H Plt Count 152 Neut % (Auto) 77.5 H Lymph % (Auto) 10.0 L [place] % (Auto) 10.0 Eos % (Auto) 1.1 Baso % (Auto) 0.7 Neut # (Auto) 6.50 Lymph # (Auto) 0.80 L [place] # (Auto) 0.80 Eos # (Auto) 0.09 Baso # (Auto) 0.06 Abs Immat Gran (auto) 0.06 VBG pH 7.504 H VBG pCO2 50 VBG pO2 23.8 L VBG HCO3 39 H Sodium 142 Potassium 2.9 L* Chloride 97 Carbon Dioxide 37 H BUN 12 Creatinine 0.6 Estimated Creat Clear 41.33 Estimated GFR 93 Glucose 169 H Calcium 8.2 L Magnesium Total Bilirubin 0.5 Direct Bilirubin 0.3 AST 50 H ALT 54 H Alkaline Phosphatase 207 H Troponin I NT-Pro-B Natriuret Pep Total Protein 6.6 Albumin 3.3 06/21/22 06/21/22 11:03 11:03 WBC 9.36 RBC 3.52 L Hgb 9.8 L Hct 33.0 MCV 94 MCH 28 MCHC 30 L RDW Coeff of Héctor 16.7 H Plt Count 345 Neut % (Auto) 81.5 H Lymph % (Auto) 7.6 L [place] % (Auto) 7.1 Eos % (Auto) 0.5 Baso % (Auto) 2.8 Neut # (Auto) 7.60 H Lymph # (Auto) 0.70 L [place] # (Auto) 0.70 Eos # (Auto) 0.05 Baso # (Auto) 0.26 Abs Immat Gran (auto) 0.05 VBG pH VBG pCO2 VBG pO2 VBG HCO3 Sodium 143 Potassium 3.2 L Chloride 99 Carbon Dioxide 37 H BUN 12 Creatinine 0.6 Estimated Creat Clear 41.33 Estimated GFR 93 Glucose 140 H Calcium 8.1 L Magnesium Pending Total Bilirubin 0.5 Direct Bilirubin AST 68 H ALT 60 H Alkaline Phosphatase 205 H Troponin I 0.08 H* NT-Pro-B Natriuret Pep 7800 H Total Protein 6.6 Albumin 3.3 Preliminary micro results at discharge 06/20/22 13:04 Blood Culture - Preliminary Blood NO GROWTH AFTER 24 HOURS 06/20/22 11:30 Blood Culture - Preliminary Blood NO GROWTH AFTER 24 HOURS Discharge Plan Discharge Disposition: [facility] Date of Admission: 06/20/22 18:00 Attending Provider on Discharge: Ruel Sales Primary Care Provider: Hilaria Alcantara Condition: Unchanged Discharge Medications: New potassium chloride 20 mEq packet 20 meq PO DAILY Qty: 30 2RF Continued duloxetine 60 mg capsule,delayed release(DR/EC) 120 mg PO DAILY fluticasone propionate 50 mcg/actuation spray,suspension 1 spray INTRANASAL BID lisinopril 20 mg tablet 20 mg PO DAILY quetiapine 25 mg tablet 25 mg PO TID PRN (Reason: agitation) Spiriva with HandiHaler 18 mcg capsule, w/inhalation device 1 cap INHALATION DAILY multivitamin [Multiple Vitamins] Tablet 1 tab PO DAILY cholecalciferol (vitamin D3) 50 mcg (2,000 unit) tablet 2,000 unit PO DAILY fluticasone propion-salmeterol [Wixela Inhub] 250-50 mcg/dose blister with device 1 inh INHALATION BID atorvastatin 10 mg tablet 10 mg PO HS cetirizine 10 mg tablet 10 mg PO HS acetaminophen 500 mg tablet 1,000 mg PO TID PRN (Reason: pain) albuterol sulfate 90 mcg/actuation HFA aerosol inhaler 2 puff INHALATION Q4H PRN (Reason: shortness of breath or wheezing) Eliquis 5 mg tablet 5 mg PO BID diclofenac sodium 1 % gel 2 g TOPICAL TID PRN furosemide 20 mg tablet 20 mg PO DAILY metoprolol tartrate 50 mg tablet 50 mg PO BID quetiapine 25 mg tablet 12.5 mg PO DAILY oxycodone 5 mg tablet 2.5 mg PO Q4H PRNQty: 20 0RF Changed sennosides [senna] 8.6 mg tablet 8.6 mg PO DAILY PRN (Reason: Constipation) Qty: 30 0RF lorazepam 0.5 mg tablet 0.5 mg PO DAILY@08 PRN (Reason: Anxiety) Qty: 20 0RF polyethylene glycol 3350 [Gavilax] 17 gram/dose powder 17 g PO DAILY PRN (Reason: Constipation) Qty: 238 0RF Discontinued mirtazapine 45 mg tablet 45 mg PO HS Discharge Orders: Discharge Order (Routine); Ordered 06/22/22 Ordered By: Ruel Sales Activity Level: Activity as Tolerated Discharge Diet: Regular Follow Up Appointments: Hilaria Alcantara DNP, RN [Primary Care Provider] - Provider,Not a Local [Referring] -
--- NOTE | 2022-06-22 10:29 | PC.SOCIAL ---
Discharge planning: Spoke with dtr Michelle by phone regarding d/c plan. Dtr is requesting pt be discharged back to the [facility] on comfort care and not for rehab services. Dtr is aware the facility will request Medical Assistance coverage for her prison comfort care stay.
[2022-06-22 11:00] VITALS: BP 179/93; PULSE 88; RESP 24; TEMP 36.9; O2SAT 90
--- NOTE | 2022-06-22 11:19 | PC.NURSE ---
Nurse to Nurse called to [facility] at 1115. Pt will be d/c'd to care center at 1300. K+ continues to be low, replacing orally. Pt unable to tolerate swallowing levaquin abx, Dr. Sales notified and this was discontinued. Ativan given for anxiety and patient reports it is effective. Ax1-2 with GB and walker, pivot tx to BSC. Crackles to bilateral lobes, 3+ pitting edema BLE. Pt verbalizes I don't feel good, I feel very weak today. encouraged ordering meal tray, pt refused. Retail Banking Manager did order tray in hopes patient would pick at food however not interested and pt continued to refuse. C diff sample not yet collected d/t no BM.
--- NOTE | 2022-06-22 12:17 | REH.OT ---
OT orders cancelled due to pt transferring back to [facility] with comfort cares.
[2022-06-22 15:47] LABS: Magnesium* 1.5 mg/dL (1.5-2.6)
== END 2022-06-22 12:55 | DRG 291 ==
LOC: ED 17:30 → MEDSURG 18:02
PROVIDERS: Family Medicine; Admitting Provider Family Medicine; Emergency Provider Family Medicine; PCP Nurse Practitioner Gerontology; Visit Provider Family Medicine
DX: I11.0 Hypertensive heart disease with heart failure (principal); I50.33 Acute on chronic diastolic (congestive) heart failure; F03.90 Unspecified dementia, unspecified severity, without behavioral disturbance, psychotic disturbance, mood disturbance, and anxiety; G40.909 Epilepsy, unspecified, not intractable, without status epilepticus; J44.9 Chronic obstructive pulmonary disease, unspecified; F41.9 Anxiety disorder, unspecified; F32.A Depression, unspecified; E78.5 Hyperlipidemia, unspecified; I73.9 Peripheral vascular disease, unspecified; E87.6 Hypokalemia; I35.0 Nonrheumatic aortic (valve) stenosis; D64.9 Anemia, unspecified; R74.8 Abnormal levels of other serum enzymes; R10.9 Unspecified abdominal pain
CPT/HCPCS: 36415; 70450; 70496; 70498; 71045; 74177; 80048; 80053; 80076; 82803; 83605; 83735; 83880; 84484; 85025; 87040; 87493; 87635; 92610; 93005; 93306; 94761; 99284; 99285; A9270; J1940; J2270; Q9967